=== PATIENT | female | born 1945 | race Caucasian/White ===

== ENCOUNTER → 2016-06-27 | Outpatient (REF) | payer MEDICARE, OTHER ==
[~2016-06-27] MED LIST: ACET65TA OR; AMIT10TA2 OR; ASPI81TA83 OR; ASTELIN; BACTROBAN TOP; CARD90TA OR; CETI10TA OR; DRISDOL PO; FLON0.05; GLUC500T OR; INSULANT SC; LANO0.252 OR; LOPR100T OR; METO10TA2 OR; MULTIVIT PO; NITR0.4S SL; NOVOLOG100 MG/ML SC; PLAV75TA2 OR; PRIL20CA OR; PRIN20TA3 OR; TRAM50TA2 OR; TRILIPIX PO; VITA250T OR; ZOCO80TA OR
[2016-06-27 14:19] LABS: PERCENT SATURATION 20.8 % (13.2-37.4)
== END ==
LOC: M LAB REF 13:21
PROVIDERS: ATTEND Internal Medicine Medical Oncology
DX: D46.9 Myelodysplastic syndrome, unspecified (principal); D64.9 Anemia, unspecified

== ENCOUNTER 2016-07-19 10:01 | Inpatient (IN) | payer MEDICARE, OTHER ==
[~2016-07-19] VITALS: Ht 160 cm; Wt 64.5 kg
[2016-07-19] MEDS: SPIRONOLACTONE 12.5MG PER 1/2 TABLET PO SCH (09:00)
[2016-07-19] MEDS ORDERED: ONDANSETRON 4MG/2ML VIAL (J2405) IV ONE (10:45)
[2016-07-19] MEDS ORDERED: MORPHINE 2 MG/ML 1ML SYRINGE IV PRN (10:45)
[2016-07-19 11:08] LABS: BASO # 0.1 K/mm3 (0.0-0.2); BASO % 0.5 % (0.0-1.0); EOS # 0.1 K/mm3 (0.0-0.50); LARGE UNSTAINED CELL # 0.1 K/mm3 (0.0-0.4); LARGE UNSTAINED CELL % 0.9 % (0.0-4.0); LYMPH # 1.6 K/mm3 (1.5-4.5); LYMPH % 14.3 % (24.0-44.0); MEAN CORPUSCULAR HEMOGLOBIN 29.9 pg (27.0-33.0); MEAN CORPUSCULAR HGB CONC 32.6 g/dl (32.0-36.5); MEAN CORPUSCULAR VOLUME 91.5 fl (80.0-96.0); MONO # 0.5 K/mm3 (0.0-0.8); MONO % 4.7 % (0.0-5.0); NEUTROPHILS # 8.3 K/mm3 (1.8-7.7); NEUTROPHILS % 78.7 % (36.0-66.0); PLATELET COUNT, AUTOMATED 249 k/mm3 (150-450); RED CELL DISTRIBUTION WIDTH 16.9 % (11.5-14.5); WHITE BLOOD COUNT 10.5 K/mm3 (4.0-10.0)
[2016-07-19 11:17] LABS: INR 1.29
[2016-07-19] MEDS ORDERED: ACETAMINOPHEN TAB 650MG DOSE (2X325MG) PO ONE (11:30)
[2016-07-19] MEDS ORDERED: PROT20TA11 (11:31)
[2016-07-19] MEDS ORDERED: ENTR1TAB (11:31)
[2016-07-19] MEDS ORDERED: MAGN400T2 (11:31)
[2016-07-19] MEDS ORDERED: CARV25TA (11:31)
[2016-07-19] MEDS ORDERED: DEMADEX (11:31)
[2016-07-19] MEDS ORDERED: ATOR40TA (11:31)
[2016-07-19] MEDS ORDERED: XARE20TA PO ×2 (11:31→13:50)
[2016-07-19] MEDS ORDERED: ISOS1TAB12 (11:31)
--- NOTE | 2016-07-19 11:32 | REP ---
PORTABLE CHEST: AP portable view of the chest is performed. There is mild cardiomegaly. There is mild vascular congestion. No infiltrates are seen. Left pacemaker is noted. There is calcification of the thoracic aorta. The mediastinal silhouette is otherwise unremarkable. IMPRESSION: Mild cardiomegaly and diffuse vascular congestion. No infiltrate. Signed by Armaan Dewey MD 07/19/2016 05:03 P
[2016-07-19 11:35] LABS: ALBUMIN 3.6 GM/DL (3.2-5.2); ALBUMIN/GLOBULIN RATIO 1.06 (1.00-1.93); BILIRUBIN,DIRECT 0.2 MG/DL (0.0-0.2); BILIRUBIN,TOTAL 0.6 MG/DL (0.2-1.0); CALCIUM LEVEL 9.1 MG/DL (8.8-10.2); CREATININE FOR GFR 1.2 MG/DL (0.55-1.02); GLOMERULAR FILTRATION RATE 47.3 (>39); POTASSIUM SERUM 3.9 MEQ/L (3.5-5.1)
[2016-07-19] MEDS ORDERED: FUROSEMIDE 40 MG/4 ML VIAL (J1940) IV ONE (13:15)
[2016-07-19] MEDS ORDERED: ATOR40TA PO (13:50)
[2016-07-19] MEDS ORDERED: INSUH10VL SC (13:50)
[2016-07-19] MEDS ORDERED: ASPI1TAB PO (13:50)
[2016-07-19] MEDS ORDERED: INSULANT SC (13:50)
[2016-07-19] MEDS ORDERED: PANT20TA PO (13:50)
[2016-07-19] MEDS ORDERED: METF500T PO (13:50)
[2016-07-19] MEDS ORDERED: AMIT100TA PO (13:50)
[2016-07-19] MEDS ORDERED: CARV25TA PO (13:50)
[2016-07-19] MEDS ORDERED: ISOS1TAB12 PO (13:50)
[2016-07-19] MEDS ORDERED: ENTR1TAB PO (13:50)
[2016-07-19] MEDS ORDERED: DRIS50002 PO (13:50)
[2016-07-19] MEDS ORDERED: MAGN400T5 PO (13:50)
[2016-07-19] MEDS ORDERED: TYLE650T35 PO (13:50)
[2016-07-19] MEDS ORDERED: TORS5TAB2 PO (13:50)
[2016-07-19] MEDS ORDERED: DIGO0.12 PO (13:50)
[2016-07-19] MEDS ORDERED: CLOB05OI TOP (13:52)
[2016-07-19] MEDS ORDERED: NITR4TASL SL (13:52)
[2016-07-19] MEDS ORDERED: GLUCOSE 4 GM CHEW TABLET PO PRN (15:00)
[2016-07-19] MEDS ORDERED: DEXTROSE 50% 50 ML SYRINGE IV PRN (15:00)
[2016-07-19] MEDS ORDERED: GLUCAGON FOR INJ 1 MG VIAL (J1610) SC PRN (15:00)
[2016-07-19] MEDS ORDERED: NITROGLYCERIN 0.4 MG SUBL TABLET SL PRN (15:15)
--- NOTE | 2016-07-19 15:36 | HPEPDOC ---
Medical History and Physical Date of Admission 07/19/16 History and Physical ATTENDING: Dr. Stroud PCP: Dr Johnson, [facility]. Legal Compliance Officer: Dr Zheng. CC: Chest Pain. HPI: 70yoF with a past medical history significant for CAD/MS, ischemic cardiomyopathy with AICD, chronic atrial fibrillation, follows with cardiology, Dr Zheng. The patient reports that she was having chest pain yesterday and was advised to report to the emergency department by her glaze handler, Dr. Zheng. She however did not do so. Last evening throughout the night, she continued to have chest pain and states she was using sublingual nitroglycerin. This morning she reported this to her xyginmpz-ne-fog who brought her to the emergency department for evaluation. She states the pain is in her mid chest and radiates around her chest. She describes this as a pressure. She states it occurred on and off throughout the night. She did use sublingual nitroglycerin however she is unsure how many times she used it. She states she did have associated shortness of breath, palpitations, and lightheadedness. She does not report nausea or diaphoresis. She does not report any jaw pain or arm pain. She states she is currently pain-free. Denies any fevers, chills, weakness, fatigue, MCCOY, cough, abdominal pain, N/V/D or changes in bowel or bladder habits. Upon presentation to the hospital the patient was found to have chest pain/ pulmonary edema, thus the hospitalist team was consulted. PMHx: CAD/MS Cardiac stents 6 Chronic atrial fibrillation-on Xarelto IDDM Ischemic cardiomyopathy/AICD 02/04 Hypertension/hypertensive heart disease Hyperlipidemia COPD Restless leg syndrome GERD CKD3 MISTY/noncompliant with CPAP History of chronic anemia/MDS- Poggi in past. (bone marrow bx 02/23) PSHX: Hysterectomy Cholecystectomy EGD 07/06. Laura. Unremarkable Colonoscopy 07/06. Laura. Adenomatous polyp. 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 Well-nourished, well developed. No acute distress. Alert and oriented x 3. Pleasant, interactive. HEENT: Normocephalic, atraumatic. Pupils are equal, round, and reactive to light. Extraocular movements are intact. No nystagmus appreciated. Sclera are nonicteric. Conjunctiva without injection. Nose midline. Nasal turbinates without bogginess. EACs both patent BL. TMs both visualized and harvey with good cone of light, no bulging or erythema. No facial asymmetry. Moist mucous membranes. Dentition fair. Pharynx pink and moist, no cobblestoning. Neck supple , trachea midline. No lymphadenopathy or thyromegaly appreciated. CHEST: irregular irregular rate and rhythm, +S1, +S2. LUNGS: Clear to auscultation bilaterally. No wheezes, rales, or rhonchi. Breathing appears symmetric and easy. Patient is speaking in full sentences. No accessory muscle use. ABD: Round, soft, non-tender, non-distended. +Bowel sounds throughout. No rebound or guarding. No costovertebral angle tenderness. EXT: Pulses 2+ bilaterally dorsalis pedis and radial. No lower extremity edema appreciated. SKIN: [place], dry, warm. Capillary refill <2sec. No rashes. NEURO: Alert and oriented x 3. Cranial nerves III-XII are intact. No focal deficits appreciated. CXR: Mild cardiomegaly and diffuse vascular congestion, no infiltrate. BNP 890. A&P: 70yoF with a past medical history significant for CAD/MS, ischemic cardiomyopathy with AICD, chronic atrial fibrillation, follows with cardiology, Dr Zheng. The patient reports that she was having chest pain yesterday and was advised to report to the emergency department by her glaze handler, Dr. Zheng. She however did not do so. Last evening throughout the night, she continued to have chest pain and states she was using sublingual nitroglycerin. This morning she reported this to her hmbqshkd-wi-och who brought her to the emergency department for evaluation. The patient will be admitted to PCU for at least [address] Stroud's service. Patient is discussed with Dr. Rudolph. Chest pain. CIP/Trop Q8 x [address] Zheng who is aware and will follow Pt. Pulmonary edema. IV Lasix in ED, po Torsemide on Hold. IV Lasix 40mg Q8 for net neg 1-1.5 l per 24 hr. CAD/history of MS/cardiac stents. Coreg with hold parameters, statin, Imdur, sublingual nitroglycerin as needed. Ischemic cardiomyopathy/AICD. Digoxin, digoxin level added to admission labs. Entresto. Chronic atrial fibrillation. Coreg with hold parameters/patient remains on Xarelto. Hypertension/hypertensive heart disease Hyperlipidemia. Continue statin. IDDM. Continue Levemir at reduced dose/sliding scale insulin. Metformin on hold. CKD3. Baseline serum creatinine appears to be 1.1-1.2. GERD. PPI. Hypomagnesemia. Continue supplement. Magnesium level pending. RLS. Patient takes amitriptyline at bedtime. MISTY. Patient is noncompliant with CPAP. Supplemental oxygen as needed. History of chronic anemia related to MDS. Evaluated by Dr. Tolentino in the past. Baseline hemoglobin appears to be 9-10. DVT prophylaxis. Patient remains on Xarelto. The patient states she is DNR, copy of DNR is requested for the chart. I have both independently examined this patient as well as reviewed the dictated note. I have discussed in detail with Jose Miguel Danielle the findings and plan of treatment as documented in the her note. I will continue to follow the patient and offer further guidance to the patients care as necessary during this hospital stay. Vital Signs 97.6 74 138/75 14 96% room air Laboratory Data Labs 24H Laboratory Tests 2 07/19/16 11:00: Aspartate Amino Transf (AST/SGOT) 21, Alanine Aminotransferase (ALT/SGPT) 33, Alkaline Phosphatase 63, Total Bilirubin 0.6, Direct Bilirubin 0.2, Albumin 3.6 , Albumin/Globulin Ratio 1.06, Anion Gap 12, B-Type Natriuretic Peptide 890H, White Blood Count 10.5H, Red Blood Count 3.21L, Hemoglobin 9.6L, Hematocrit 29.4L, Mean Corpuscular Volume 91.5, Mean Corpuscular Hemoglobin 29.9, Mean Corpuscular Hemoglobin Concent 32.6, Red Cell Distribution Width 16.9H, Platelet Count 249, Neutrophils (%) (Auto) 78.7H, Lymphocytes (%) (Auto) 14.3L, Monocytes (%) (Auto) 4.7, Eosinophils (%) (Auto) 1.0, Basophils (%) (Auto) 0.5, Neutrophils # (Auto) 8.3H, Lymphocytes # (Auto) 1.6, Monocytes # (Auto) 0.5, Eosinophils # (Auto) 0.1, Basophils # (Auto) 0.1, Calcium Level 9.1, Creatine Kinase MB 2.4, Creatine Kinase MB Relative Index 4.06H, Glomerular Filtration Rate 47.3, Large Unclassified Cells # 0.1, Large Unclassified Cells % 0.9, Prothromb Time International Ratio 1.29, Prothrombin Time 16.2H, Total Creatine Kinase 59, Total Protein 7.0, Troponin I 0.24H 07/19/16 12:30: Creatine Kinase MB 2.5, Creatine Kinase MB Relative Index 4.03H, Total Creatine Kinase 62, Troponin I 0.29#H CBC/BMP Laboratory Tests 07/19/16 11:00 Red Blood Count 3.21 L, Mean Corpuscular Volume 91.5, Mean Corpuscular Hemoglobin 29.9, Mean Corpuscular Hemoglobin Concent 32.6, Red Cell Distribution Width 16.9 H, Neutrophils (%) (Auto) 78.7 H, Lymphocytes (%) (Auto ) 14.3 L, Monocytes (%) (Auto) 4.7, Eosinophils (%) (Auto) 1.0, Basophils (%) ( Auto) 0.5, Neutrophils # (Auto) 8.3 H, Lymphocytes # (Auto) 1.6, Monocytes # ( Auto) 0.5, Eosinophils # (Auto) 0.1, Basophils # (Auto) 0.1 Home Medications Scheduled Acetaminophen (Tylenol 8 Hour Arthritis) 650 Mg Tab 1,300 MG PO BID Amitriptyline HCl (Amitriptyline HCl) 100 Mg Tab 100 MG PO QHS Aspirin (Aspirin 81) 81 Mg Tab 81 MG PO DAILY Atorvastatin Calcium (Atorvastatin Calcium) 40 Mg Tab 80 MG PO QHS Carvedilol (Carvedilol) 25 Mg Tab 25 MG PO BID Digoxin (Digoxin) 0.125 Mg Tab 0.125 MG PO DAILY Insulin Aspart (Novolog) 100 U/Ml Inj 0 SC AC PER SLIDING SCALE Insulin Glargine (Lantus) 1 Units/0.01 Ml Susp 44 UNITS SC DAILY Isosorbide Mononitrate (Isosorbide Mononitrate) 10 Mg Tab 5 MG PO BID Magnesium Oxide (Magnesium Oxide 400) 400 Mg Tab 400 MG PO QPM DINNERTIME Metformin Hydrochloride (Metformin HCl) 500 Mg Tab 500 MG PO BID Pantoprazole Sodium (Pantoprazole Sodium) 20 Mg Tab 20 MG PO DAILY Rivaroxaban (Xarelto) 20 Mg Tab 20 MG PO QPM DINNERTIME Sacubitril/Valsartan (Entresto 24-26 mg) 1 Tab Tab 1 TAB PO BID Torsemide (Torsemide) 5 Mg Tab 5 MG PO BID Vitamin D (Drisdol) 50,000 Unit Cap 50,000 UNIT PO Q2WK TAKES EVERY OTHER MONDAY Scheduled PRN Clobetasol Propionate (Clobetasol Propionate) 0.05 % Oin 1 DOSE TOP PRN PRN PRN RASH Nitroglycerin (Nitrostat) 0.4 Mg Subl 0.4 MG SL NITRO PRN PRN CHEST PAIN Allergies Coded Allergies: Codeine (Verified Allergy, Intermediate, RASH, 08/21/12) Latex (Verified Allergy, Intermediate, RASH, 08/21/12) Penicillins (Verified Allergy, Intermediate, RASH w/AUGMENTIN, 08/21/12) Penicillins Cross Reactors (Verified Allergy, Intermediate, RASH w/ AUGMENTIN, 08/21/12) Ana Santos Jul 19, 2016 15:36 MARLA RUDOLPH MD Jul 24, 2016 18:46
[2016-07-19 15:38] VITALS: BP 143/64
[2016-07-19 15:41] LABS: DIGOXIN LEVEL 1.7 NG/ML (0.5-2.0); MAGNESIUM LEVEL 1.5 MG/DL (1.8-2.4)
[2016-07-19] MEDS ORDERED: MAGNESIUM OXIDE 400 MG TAB (MAG-OX) PO SCH (18:00)
[2016-07-19] MEDS: HumaLOG INSULIN (NovoLOG) PER UNIT SC SCH ×2 (21:00→22:51)
[2016-07-19] MEDS: MAGNESIUM OXIDE 400 MG TAB (MAG-OX) PO SCH (21:00)
[2016-07-19 21:12] VITALS: BP 155/99
[2016-07-19] MEDS: AMITRIPTYLINE 50 MG TAB PO SCH (22:49)
[2016-07-19] MEDS: ACETAMINOPHEN TAB 650MG DOSE (2X325MG) PO PRN (22:49)
[2016-07-19] MEDS: RIVAROXABAN 20 MG TAB (XARELTO) PO SCH (22:50)
[2016-07-19] MEDS: ISOSORBIDE MONONITRATE 10MG TABLET PO SCH (22:50)
[2016-07-19] MEDS: ENTRESTO 24-26MG TABLET (SACUBITRIL/VALSARTAN) PO SCH (22:50)
[2016-07-19] MEDS: ATORVASTATIN 20 MG TAB PO SCH (22:51)
[2016-07-19] MEDS: CARVedilol 12.5 MG TAB PO SCH (22:52)
[2016-07-19] MEDS: FUROSEMIDE 40 MG/4 ML VIAL (J1940) IV SCH (23:48)
[2016-07-20] VITALS (7 sets, daily range): BP systolic 119–169; BP diastolic 55–75
[2016-07-20] MEDS ORDERED: SLF 3 ML SYR IV PRN (03:30)
[2016-07-20 04:35] LABS: MEAN CORPUSCULAR HEMOGLOBIN 29.8 pg (27.0-33.0); MEAN CORPUSCULAR HGB CONC 33.4 g/dl (32.0-36.5); MEAN CORPUSCULAR VOLUME 89.1 fl (80.0-96.0); RED CELL DISTRIBUTION WIDTH 16.8 % (11.5-14.5); WHITE BLOOD COUNT 8.9 K/mm3 (4.0-10.0)
[2016-07-20 04:55] LABS: ALBUMIN 3.4 GM/DL (3.2-5.2); BILIRUBIN,TOTAL 0.7 MG/DL (0.2-1.0); CALCIUM LEVEL 8.8 MG/DL (8.8-10.2); CREATININE FOR GFR 1.08 MG/DL (0.55-1.02); GLOMERULAR FILTRATION RATE 53.4 (>39); POTASSIUM SERUM 3.3 MEQ/L (3.5-5.1); TOTAL PROTEIN 6.8 GM/DL (6.4-8.2)
[2016-07-20] MEDS: SLF 3 ML SYR IV SCH ×3 (05:04→20:25)
[2016-07-20] MEDS ORDERED: POTASSIUM CHLORIDE 10 MEQ SR TABLET PO ONE ×2 (07:30→19:15)
[2016-07-20] MEDS: HumaLOG INSULIN (NovoLOG) PER UNIT SC SCH ×4 (08:50→20:21)
[2016-07-20] MEDS: SPIRONOLACTONE 12.5MG PER 1/2 TABLET PO SCH (08:51)
[2016-07-20] MEDS: LEVEMIR (INSULIN DETEMIR) 1 UNITS/0.01ML SC SCH (08:51)
[2016-07-20] MEDS: FUROSEMIDE 40 MG/4 ML VIAL (J1940) IV SCH (08:51)
[2016-07-20] MEDS: MAGNESIUM OXIDE 400 MG TAB (MAG-OX) PO SCH ×2 (08:52→20:24)
[2016-07-20] MEDS: ISOSORBIDE MONONITRATE 10MG TABLET PO SCH ×2 (08:52→20:23)
[2016-07-20] MEDS: CARVedilol 12.5 MG TAB PO SCH ×2 (08:52→20:22)
[2016-07-20] MEDS: ASPIRIN 81 MG ENTERIC TAB PO SCH (08:53)
[2016-07-20] MEDS: ENTRESTO 24-26MG TABLET (SACUBITRIL/VALSARTAN) PO SCH ×2 (08:53→20:24)
[2016-07-20] MEDS ORDERED: LEVEMIR (INSULIN DETEMIR) 1 UNITS/0.01ML SC SCH (09:00)
[2016-07-20] MEDS ORDERED: PANTOPRAZOLE 20 MG TAB PO SCH (09:00)
[2016-07-20] MEDS ORDERED: DIGOXIN 0.125 MG TAB PO SCH (09:00)
[2016-07-20 09:24] LABS: MAGNESIUM LEVEL 1.5 MG/DL (1.8-2.4)
--- NOTE | 2016-07-20 10:25 | ECGEPIP ---
Stationary ECG Study [facility] - ED Test Date: 2016-07-19 Pat Name: ARYAN RAMOS Department: Room: - Gender: F Information And Data Architect Analyst: lizette : 1945 Requested By: Sapna Woods Order Number: [id number] Reading MD: Reyes Tse Measurements Intervals [place] Rate: 88 P: [place]: 0 QRS: 2 QRSD: 109 T: 147 QT: 344 QTc: 416 Interpretive Statements ATRIAL FIBRILLATION WITH OCCASIONAL PACEMAKER LEFT VENTRICULAR HYPERTROPHY WITH STRAIN PATTERN NO PRIORS Electronically Signed On 07-20-2016 10:24:59 EST by Reyes Tse
--- NOTE | 2016-07-20 10:30 | ECGEPIP ---
Stationary ECG Study [facility] - ED Test Date: 2016-07-19 Pat Name: ARYAN RAMOS Department: Room: - Gender: F Code Enforcement Supervisor: lizette : 1945 Requested By: Sapna Woods Order Number: [id number] Reading MD: Reyes Tse Measurements Intervals [place] Rate: 76 P: [place]: 0 QRS: -1 QRSD: 111 T: 152 QT: 360 QTc: 405 Interpretive Statements ELECTRONIC VENTRICULAR PACEMAKER WITH ATRIAL FIBRILLATION LEFT VENTRICULAR HYPERTROPHY WITH STRAIN PATTERN SIMILAR TO 07/19/16 1015h Electronically Signed On 07-20-2016 10:29:51 EST by Reyes Tse
--- NOTE | 2016-07-20 10:32 | ECGEPIP ---
Stationary ECG Study [facility] - ED Test Date: 2016-07-19 Pat Name: ARYAN RAMOS Department: Room: [place] [address] Gender: F Auricular Therapist: julia : 1945 Requested By: Sapna Woods Order Number: [id number] Reading MD: Reyes Tse Measurements Intervals [place] Rate: 77 P: [place]: 0 QRS: -4 QRSD: 121 T: 148 QT: 370 QTc: 421 Interpretive Statements ELECTRONIC VENTRICULAR PACEMAKER WITH ATRIAL FIBRILLATION LEFT VENTRICULAR HYPERTROPHY WITH STRAIN PATTERN SIMILAR TO 07/19/16 1209h Electronically Signed On 07-20-2016 10:32:19 EST by Reyes Tse
[2016-07-20] MEDS: MAG SULF 1GM/100ML (MAG RUN) 1 GM in APPROPRIATE DILUENT 1 EA IV SCH ×4 (12:12→20:21)
--- NOTE | 2016-07-20 14:18 | IPNPDOC ---
Text Note Date of Service The patient was seen on 07/20/16. NOTE Subjective: Patient is a 70 year old female with a PMHx of CAD (Hx of SD) - s/p Stent x6, Ischemic cardiomyopathy - s/p AICD, Chronic A. fib (on Xarelto), IDDM2 , HTN, DLP, COPD, RLS, GERD, CKD3, MISTY (not on CPAP), History of Anemia / MDS who presented to the ER with complaints of chest pain and shortness of breath. She reported taking nitroglycerin with some relief. She was brought in for evaluation and was admitted for CHF exacerbation. Patient was seen and examined at the bedside. Patient denies any problems. Objective: Vitals (See below) General: Lying in bed, no acute distress, comfortable, AAOx3 HEENT: NC, AT CVS: Irregularly irregular, +S1S2 Lungs: Fair air entry b/l, -w/r/r Abdomen: Soft, ND, NT, +BSx4 Extremities: +PPx4, - Edema, - Calf tenderness Assessment and plan: 1. Chest pain - possibly 2/2 NSTEMI, possibly 2/2 demand ischemia from CHF exacerbation - chest pain currently resolved - EKG without acute changes - Troponin remained stable - c/w Isosorbide mononitrate and nitroglycerin PRN - Cardiology consulted 2. Dyspnea - possibly 2/2 Decompensated sytolic and diastolic CHF - likely 2/2 non-compliance with meds - Presented with shortness of breath - Physical currently un-revealing for fluid overload - CXR reveals some early vascular congestion - s/p Lasix IV - Takes Entresto as an outpatient - Will c/w Carvedilol, Spironolactone 3. CAD s/p stents, Hx of SD - c/w ASA and Atorvastatin 4. Chronic atrial fibrillation - Digoxin level elevated; currently on hold - c/w rate control with carvedilol - c/w anticoagulation with Xarelto 5. HTN - Bp well controlled 6. DLP - c/w atorvastatin 7. IDDM2 - c/w ISS and Levemir 8. CKD3 - Cr at baseline 9. RLS - c/w amitriptyline 10. MISTY - not compliant with CPAP 11. Chronic anemia / MDS - Hg stable 12. GERD - c/w PPI 13. DVT prophylaxis - c/w full anticoagulation with Xarelto Code Status: - DNR / DNI VS,Fishbone, I+O VS, Fishbone, I+O Laboratory Tests 07/20/16 04:03 Calcium Level 8.8, Aspartate Amino Transf (AST/SGOT) 20, Alanine Aminotransferase (ALT/SGPT) 26, Total Creatine Kinase 93, Alkaline Phosphatase 53, Total Bilirubin 0.7, Total Protein 6.8, Albumin 3.4 07/20/16 04:04 Red Blood Count 3.22 L, Mean Corpuscular Volume 89.1, Mean Corpuscular Hemoglobin 29.8, Mean Corpuscular Hemoglobin Concent 33.4, Red Cell Distribution Width 16.8 H Vital Signs Date Time Temp Pulse Resp B/P Pulse Ox O2 Delivery O2 Flow Rate FiO2 07/20/16 11:55 98.0 70 22 119/55 97 Room Air FAWN NGUYEN MD Jul 20, 2016 14:17
[2016-07-20] MEDS: RIVAROXABAN 20 MG TAB (XARELTO) PO SCH (17:24)
[2016-07-20] MEDS: FAMOTIDINE 20 MG TAB PO SCH (17:27)
--- NOTE | 2016-07-20 19:36 | CR ---
CARDIOLOGY CONSULTATION DATE OF CONSULTATION: 07/19/2016 REFERRING PHYSICIAN: Dr. Anival Hurley INDICATION: Chest pain. Decompensated CHF. HISTORY: This 70-year-old mother of three grown children, disabled/retired resident of [place], [place] remarkably lives alone in her own home despite a host of medical problems including dementia. She has been quite cantankerous and admits to noncompliance with dietary measures and her medications. Has a very complicated history of ischemic, hypertensive, and mitral valvular heart disease complicated by abnormal EKG, chronic atrial fibrillation, and congestive heart failure (systolic and diastolic dysfunction), post biventricular implantable cardioverter defibrillator implant January 2016. Was also known to have chronic renal insufficiency, mild dysplastic syndrome with anemia requiring transfusion, and pulmonary problems and obstructive sleep apnea followed by pulmonary medicine. She was only just seen in my office for followup July 07, 2016, and claimed to be doing fairly well. Walks only short distances with canes stopping with dyspnea and fatigue. At that time, effort dyspnea apparently had not changed though she had gained nine pounds from prior visit March 2016. Denies orthopnea or nocturnal dyspnea. Had been free of any palpitations or ICD discharge. Her weight was 151 pounds, pulse rate was 72 beats per minute and regular with EKG showing underlying atrial fibrillation and consistent ventricular pacing and blood pressure 120/64. Neck veins were reported to be only 4 cm above sternal angle. There was good air entry over both lung [place] with no adventitious sounds and there was no reported edema. Apparently over the course of the past 24 hours, has had prolonged chest pain. Unfortunately because of her dementia, she does not recall the details of this distress. According to her daughter, she had refused to seek medical attention, but was willing to come to our office. She had been directed to come to the emergency room, but had refused yesterday. Admits to have taken a host of sublingual nitroglycerin tablets without relief and finally agreed to come to the emergency room following the pleading of her family and the persistence of her distress. Serial EKGs here showed mostly spontaneous QRS complexes unlike our office EKG believed to be a reflection of noncompliance with her beta rock. There were no obvious serial repolarization changes and serial Troponin I levels were all in an indeterminate range from 0.24-0.32. CPK values were all normal with initially marginal relative index that is not likely reliable at that low level. She was given IV morphine, Tylenol and Zofran in the emergency room with relief of her distress slightly. She was admitted to hospital because of her prolonged chest discomfort of unknown etiology and radiographic evidence of pulmonary congestion. (As mentioned above, does not follow dietary restrictions and is often noncompliant with her medical therapy.) With her chest discomfort, she claims to have had shortness of breath, but not worse than usual she claims. Has been unaware of her heart action. No ICD discharge. No symptom or sign to suggest embolic phenomenon. No leg pain or swelling. KNOWN PAST CARDIAC DISEASE/EVENTS/TESTS: June 2007, non-Q-wave myocardial infarction with cardiac catheterization showing LVEF of 50%, 80% mid and then occluded LAD with 80% proximal RCA stenosis. Underwent successful LAD and RCA stenting. December 2007, followup cardiac catheterization for her recurrent chest pain showed LVEF 50%, occluded mid LAD, but widely patent RCA stent. January 15, 2008, underwent CABG times one using minimally invasive BYNUM to LAD. June 2010, underwent followup cardiac catheterization showing two-vessel coronary disease with patent BYNUM to LAD, but high-grade ostial first diagonal branch stenosis and distal RCA stenosis. Both of these were successfully stented. October 2010, repeat cardiac catheterization showing again two-vessel coronary disease with patent BYNUM to LAD, patent proximal RCA and distal RCA stents and a 75% restenosis of the diagonal and 75% mid RCA stenosis. These were both stented. February 2011, dual-chamber pacemaker implantation for tachy-jamie syndrome. Paroxysmal atrial fibrillation. Subsequently this became chronic atrial fibrillation. January 2013. Continued chest pain with abnormal stress study/ cardiac catheterization showing LVEF 55% with patent BYNUM to LAD, patent RCA and diagonal vessel stents. Unable to explain her discomfort on the basis of coronary disease recommended continued medical therapy. March 2015 Echocardiogram showed mild left ventricle hypertrophy with moderately dilated left atrium with elevated mean left atrial pressure. Right heart chamber sizes had been normal with only mild pulmonary hypertension. Normal IVC size against a significantly elevated central venous pressure. Moderate mitral annular calcification with moderate to moderately severe insufficiency and moderate aortic valvular sclerosis with only trace insufficiency. December 2015. Recurrent prolonged chest pain with non-Q-wave LA/ catheterization showing severe left ventricular dysfunction, LVEF 30% with patent BYNUM to LAD as well as RCA and diagonal stents. No significant change from January 2013. December 23, 2015, Last echocardiogram, [facility] was reportedly technically difficult, but showed a dilated left ventricle, global impairment of LV systolic function, LVEF of 27%. January 28, 2016, In light of LV dysfuction her pacemaker was upgraded to a biventricular cardioverter defibrillator ([employer] - Quadra Rossyura, model number [id number] Q- FURNITURE UPHOLSTERY MECHANIC (Dr. Riddhi Patiño, mechanical technician, [facility]). CORONARY RISK FACTORS: Advanced age. Postmenopausal status. Obesity. Longstanding insulin-dependent diabetes mellitus, chronic hypertension, chronic hypercholesterolemia, had never smoked but was exposed to secondhand smoke as a child. No symptomatic cardiovascular disease or family history of premature coronary heart disease. OTHER PAST MEDICAL/SURGICAL HISTORY: Three normal vaginal deliveries. Tonsillectomy age 11. Cholecystectomy 1969. Tubal ligation 1972 with total abdominal hysterectomy 1973. Prior colonoscopy. Carotid ultrasound October 14, 2014, showed 55% bilateral internal carotid artery stenoses. Brain CT scan October 14, 2014, showed cerebral atrophy and chronic microvascular ischemic changes with extensive atherosclerotic arterial calcifications. Nocturnal oximetry and prior sleep studies April 05 and June 2015, confirmed obstructive sleep apnea, but the patient admits to noncompliance with CPAP therapy. Chronic renal insufficiency (stage III). Degenerative joint disease. Fibromyalgia. Restless leg syndrome. Anemia of chronic disease, believed to be mild dysplastic syndrome follows with Dr. Miranda, hematology. REVIEW OF SYSTEMS: Weight gain as mentioned above. Has been free of any fever, chills or night sweats. Wears corrective lenses. Reduced auditory acuity but does not wear a hearing aid. History of asthmatic bronchitis. Currently denies cough, hemoptysis or prior pneumonia. Intermittent dysphagia and heartburn on proton pump inhibitor therapy. Denies recent abdominal pain, change in bowel habit or GI bleeding. Urinary incontinence with chronic renal insufficiency as mentioned. Denies dysuria or hematuria. History of myalgia and arthralgia. Was also a problem with her balance and has fallen on multiple occasions and despite this has been adamant to live by herself. Fortunately has not fractured any bones. History of anxiety and depression. Intermittent lightheadedness, headache. Digital paresthesia related to her diabetes. History of easy bruising with her oral anticoagulant therapy. Environmental allergies. Seasonal allergies. All other systems review is negative. MEDICATIONS: At home she is supposed to be taking carvedilol 25 mg twice a day, digoxin 0.125 mg daily, Entresto 24-26 one tablet twice a day, torsemide 5 mg twice a day, atorvastatin 80 mg at bedtime, Nitrostat 0.4 mg SL every five minutes as needed, Xarelto 50 mg daily, isosorbide mononitrate 5 mg twice a day, aspirin 81 mg daily, magnesium 400 mg by mouth daily, Protonix 20 mg daily, metformin to 500 mg twice a day, Lantus insulin as directed. NovoLog FlexPen sliding scale as directed. Amitriptyline 100 mg at bedtime, and Tylenol 500 mg tablets two tablets at bedtime. ALLERGIES: Reported includes CODEINE, AUGMENTIN, TAPE, DETERGENTS, and HYDROCODONE with uncertain reactions. According to the electronic medical record has a DO NOT RESUSCITATE which is not presently available on the chart. PHYSICAL EXAMINATION: CONSTITUTIONAL: Somewhat cantankerous elderly lady of medium body build, not currently appearing in any distress. Lying comfortably with the head of bed elevated 30 degrees. Slight pallor. VITAL SIGNS: Heart rate 90 bpm and irregularly irregular, blood pressure 150/60 both arms supine and sitting with legs dependent, respiratory rate 18 per minute , O2 saturation 96% on room air. She is afebrile. Weight 142 pounds (curiously almost 10 pounds less than she was in my office July 07, 2016??). Height 63 inches, body surface area 1.7 m2 and BMI 25.2. EYES: Slightly pale but no icterus or petechiae. No xanthelasma of her lids. ENT/Mouth: Upper and lower dentures. Normal oral moisture. No central cyanosis. NECK: Trachea midline. Thyroid not enlarged. Jugular veins appeared to be at approximately 4 cm above the sternal angle. RESPIRATORY: Normal-appearing chest configuration and chest expansion with well-healed sternotomy incision and ICD incision left subclavian region. Good air entry over both lung [place] with no more than subtle bibasilar inspiratory crepitations. Slight prolongation of expiration but no audible wheeze. CARDIOVASCULAR: Apical impulse at the anterior axillary line fifth intercostal space with palpable apical thrill. Variable S1-S2 related to her arrhythmia. Audible S3 gallop with obvious grade 3-4 out of 6 apical systolic murmur that does not vary with her regular pulse. Separate systolic ejection murmur along left sternal border radiating to the right base that does vary with her irregular pulse in keeping with LV outflow tract origin. No diastolic murmur. Normal carotid upstrokes but variable volume related to her arrhythmia. No bruits. Abdominal aorta was not palpable. No bruits. Femoral pulses were symmetrical and normal. Pedal pulses were slightly reduced to symmetrically. Currently has no dependent pedal edema. No obvious varicose veins. EXTREMITIES: No clubbing, peripheral cyanosis or splinter hemorrhages. GI: Soft, nontender abdomen with no splenomegaly. Liver span measuring 8 cm in the right midclavicular line. Rectal examination not indicated. MUSCULOSKELETAL: No obvious joint deformities. Fair muscular strength for age, able to sit up by herself. Normal muscle tone. Normal spine curvature. Ambulation was not tested at this time. SKIN: Slight pallor but no icterus or skin lesions. NEURAL/PSYCH: Currently orientated to place and person. I, facial, extremity movements were symmetrical and normal. No abnormal movements. Quite cantankerous. INVESTIGATIONS: Portable chest x-ray performed this morning in the emergency room was reviewed independently. This showed obvious cardiomegaly even allowing for this portable technique. Thoracic aorta was not unfolded. Biventricular ICD pulse generator left subclavian region with pacing/shocking lead terminating in the right ventricular apex, separate atrial pacing lead in the high right atrial chamber and a left ventricular stimulating lead in a posterolateral branch of the great cardiac vein. Obvious pulmonary venous congestion and interstitial edema but no pleural effusion. This x-ray clearly shows decompensation from the last available x-ray we have of February 2011. EKGs: Serial studies were performed from 10:15 a.m. to 12:36 p.m. showing underlying atrial fibrillation with controlled ventricular response ranging from 77 to 88 bpm. Mostly spontaneous QRS complexes with occasional appropriately paced QRS complex. Fairly obvious left ventricle hypertrophy with prominent voltages and strain pattern as well as incomplete left bundle branch block configuration. No Q-waves to suggest prior infarctions. LABORATORY DATA: Hemoglobin 9.6 with normal MCV and MCHC. White blood cell count was slightly elevated at 10.5. Normal platelet count. PT/INR was slightly elevated at 16.2 with INR 1.3. Electrolytes were normal with BUN 25, creatinine 1.2 (these are minimally improved from March 2016 with BUN at that time of 35 , creatinine 1.4). Serum magnesium level was soft at 1.5, albumin was normal at 3.5, random glucose was elevated at 357, glomerular filtration rate was 47. Liver function studies were normal. Ultra sensitive TSH was normal. BNP level was elevated at 890 with no prior value available. 890 elevated from valued March 2016 when it was 342. Last lipid profile was August 2015, that showed a total cholesterol 122, HDL 38, LDL 39, total to HDL ratio 3.2, triglycerides 196. IMPRESSION/PLAN: 1. Chest pain (precordial): From her description, which unfortunately is without detail other than sustained duration from yesterday, I believe we can safely rule out myocardial ischemia as its origin with the absence of serial EKG repolarization change and flat troponin I values. The discomfort has resolved with nonspecific therapy including morphine and Tylenol. She has a history of GI disturbance and is on proton pump inhibitor. She is certainly at risk of triggering an acute coronary syndrome by her medication noncompliance which we have reviewed with the patient and her daughter. 2. Heart failure (systolic and diastolic/acute on chronic: Again, from her history she is noncompliant with medical therapy and admits to noncompliance with dietary measures as well. Has radiographic and chemical evidence of decompensation. She has been placed at least temporarily while she is here on a modest salt and fluid intake restriction. Her torsemide has been placed on hold and she has been started on furosemide 40 mg IV every eight hours for the time being. Has a biventricular ICD in situ, but interestingly off her carvedilol, her QRS complex spontaneously is narrower than her ventricular paced complexes. She will be restarted on her isosorbide mononitrate and Entresto therapies. I have tried to explain to her the importance of a modest salt and fluid intake restriction, but related to her dementia, she does not appear to be capable of understanding this. It is unlikely she would benefit from cardiac rehabilitation education. 3. Atrial fibrillation (chronic)/biventricular implantable cardioverter defibrillator in situ: Has had device implant because of primary prevention of sudden with her advanced left ventricular dysfunction. Curiously she has a DNR. As mentioned, her spontaneous QRS complexes are narrower than complexes with her biventricular stimulation. She remains on combination carvedilol and Xarelto. Her digoxin therapy was discontinued though digoxin level was only 1.7. We will continue to monitor her ventricular rates off this agent here in hospital. I am uncertain why this was discontinued as no ventricular ectopic activity has been visualized on the monitor to my understanding. Has not suffered an ICD discharge. 4. Coronary artery disease ([place] vessel)/post non-Q-wave myocardial infarctions/post CABG times one/post multiple stenting procedures of her LAD and RCA: Has had recurrent chest discomfort with a non-Q-wave infarction of late yet cardiac catheterizations 2012 as well as December 2015 have failed to demonstrate any change and no intervention had been performed. As mentioned above, her current chest pain is not believed to be ischemic in light of these prolonged duration and negative serial Troponin I levels. For the time being, remains on protective combination carvedilol, Entresto, isosorbide mononitrate, atorvastatin, and low-dose aspirin. 5. Hypertensive heart disease (benign with heart failure): As mentioned above, some signs of decompensation likely related to her noncompliance. Current systolic blood pressure is suboptimally controlled in light of this phenomenon as well. Current renal function is stable or improved from last March. I am confident that her blood pressure will be controlled with resuming her medications regularly and her present parenteral furosemide therapy. 6. Mitral valve disorder (non-rheumatic)/insufficiency: Has two systolic murmurs, one believed to be related to her moderately severe to severe mitral insufficiency and the other LV outflow tract related to her aortic valvular sclerosis. Fortunately, no symptoms or signs of endocarditis. Lema management would be optimal blood pressure control. She would not be a very good candidate for invasive intervention of her mitral valve, especially with her mental status , but she does not want any invasive intervention and is currently a DNR. I will plan on following her briefly with you here in hospital. I anticipate we will be able to deem her compensated relatively quickly, but I am frustrated by the fact that with her dementia and her living alone that she is likely to be readmitted in the near future with recurrent decompensation. Her family appear to be ineffective in persuading her to take her medications regularly or comply with her modest salt and fluid intake restriction. I am not convinced her home environment is safe in light of her report of repeated falls and tripping over items. I believe social service will be hopeful here. DARIANA
--- NOTE | 2016-07-20 19:40 | IPN ---
DATE: 07/20/2016 CARDIOLOGY PROGRESS NOTE SUBJECTIVE: The patient claims to feel quite comfortable today. No recurrent chest discomfort now that she is back on her customary medical therapy. Denies any shortness of breath or lightheadedness. OBJECTIVE: Slightly confused elderly lady of medium body build, lying fairly comfortably flat. Was in no distress. Heart rate currently 60 beats per minute and regular. Blood pressure 114/54 supine, 108/48 sitting with legs dependent. Respiratory rate 18 per minute, oxygen saturation 96% on room air. Afebrile. No weight was recorded today, but she has had a negative fluid balance. Slight pallor but no cyanosis. Normal oral moisture. Trachea midline. Neck veins were not elevated. No dependent edema. Good air entry over both lung [place] with no current inspiratory rales. Soft abdomen. MANIFOLD BUILDER: With reintroduction of her customary carvedilol, her ventricular response to her atrial fibrillation has been controlled. LABORATORY DATA: Hemoglobin today is stable at 9.6. Normal white blood cell count and platelet count. Chemistry today showed a slight degree of hypokalemia, as well as hypomagnesemia. BUN essentially stable. Creatinine actually somewhat improved with rastafari of her medications. IMPRESSION/PLAN: 1. Chest pain (precordial): I remain uncertain as to the origin of this complaint, but suspect it was gastrointestinal (GI) in origin, GI in nature, in light of her negative several troponin I levels. Fortunately, she is now restarted on her customary medications with good effect. 2. Hypokalemia/hypomagnesemia: Likely related to multiple factors including suboptimal control of her diabetes mellitus at home. Fasting blood sugar today was significantly improved. Diuretic therapy is also contributing. We have ordered parenteral magnesium replacement and she has been started on spironolactone and potassium. In light of the absence of signs of congestion, her parenteral diuretic therapy has been discontinued. Following correction of her electrolytes, we hope to resume her low-dose torsemide tomorrow. 3. Heart failure (systolic and diastolic/acute on chronic): A followup PA and lateral chest x-ray will be obtained in the morning. Her digoxin has been on hold in light of her electrolyte disturbances but will continue on her present combination carvedilol, isosorbide mononitrate, Entresto and spironolactone. 4. Atrial fibrillation (chronic)/biventricular implantable cardioverter defibrillator in situ: With her beta rock, her ventricular response to her atrial fibrillation is now controlled, such that she is using her device more regularly. Remains on Xarelto anticoagulation without manifest bleeding. 5. Coronary artery disease ([place] vessel)/post non-Q myocardial infarction, old/post remote coronary artery bypass graft (CABG)/post remote percutaneous transluminal coronary angioplasty (PTCA): As mentioned, we do not believe her admission chest pain was ischemic in nature in light of its prolonged nature and negative troponin I levels. This was likely GI and currently is receiving Pepcid in place of her proton pump inhibitor because of her hypomagnesemia. Remains on protective beta rock losartan combination, atorvastatin, and low-dose aspirin. We would encourage her gradual ambulation prior to tentative discharge home. 6. Hypertensive heart disease (benign with heart failure): Compensated as mentioned above. Current blood pressure would be considered adequately controlled. 7. Mitral valve disorder (nonrheumatic)/insufficiency: Auscultatory findings were unchanged from yesterday, remains of any symptoms or sign of endocarditis. As mentioned, I am not convinced that this person is safe to go home. Has been living by herself, has been quite cantankerous, not following dietary restrictions or being compliant with her medical therapy. If her living arrangements are not changed, I am convinced that she will simply return to the emergency room with further decompensation. I have encouraged social service to be involved, along with physical therapy, but there is no doubt in my mind that an assisted living facility would be optimal.
[2016-07-20] MEDS: AMITRIPTYLINE 50 MG TAB PO SCH (20:23)
[2016-07-20] MEDS: ATORVASTATIN 20 MG TAB PO SCH (20:24)
[2016-07-21 03:55] VITALS: BP 146/82
[2016-07-21 05:59] LABS: MEAN CORPUSCULAR HEMOGLOBIN 29.4 pg (27.0-33.0); MEAN CORPUSCULAR HGB CONC 32.8 g/dl (32.0-36.5); MEAN CORPUSCULAR VOLUME 89.6 fl (80.0-96.0); RED CELL DISTRIBUTION WIDTH 16.5 % (11.5-14.5); WHITE BLOOD COUNT 10.2 K/mm3 (4.0-10.0)
[2016-07-21 06:12] LABS: ALBUMIN 3.4 GM/DL (3.2-5.2); ALBUMIN/GLOBULIN RATIO 0.97 (1.00-1.93); BILIRUBIN,TOTAL 0.7 MG/DL (0.2-1.0); CALCIUM LEVEL 8.7 MG/DL (8.8-10.2); CREATININE FOR GFR 1.24 MG/DL (0.55-1.02); GLOMERULAR FILTRATION RATE 45.5 (>39); MAGNESIUM LEVEL 2.7 MG/DL (1.8-2.4); POTASSIUM SERUM 4.3 MEQ/L (3.5-5.1); TOTAL PROTEIN 6.9 GM/DL (6.4-8.2)
[2016-07-21] MEDS: SLF 3 ML SYR IV SCH ×3 (06:39→20:51)
[2016-07-21 08:00] VITALS: BP 119/68
[2016-07-21] MEDS: HumaLOG INSULIN (NovoLOG) PER UNIT SC SCH ×4 (08:11→20:51)
[2016-07-21] MEDS: LEVEMIR (INSULIN DETEMIR) 1 UNITS/0.01ML SC SCH ×2 (08:12→20:50)
[2016-07-21] MEDS: FAMOTIDINE 20 MG TAB PO SCH (08:12)
[2016-07-21] MEDS: MAGNESIUM OXIDE 400 MG TAB (MAG-OX) PO SCH ×2 (08:12→21:00)
[2016-07-21] MEDS: SPIRONOLACTONE 12.5MG PER 1/2 TABLET PO SCH (08:12)
[2016-07-21] MEDS: ASPIRIN 81 MG ENTERIC TAB PO SCH (08:12)
[2016-07-21] MEDS: ENTRESTO 24-26MG TABLET (SACUBITRIL/VALSARTAN) PO SCH ×2 (08:13→20:49)
[2016-07-21] MEDS: CARVedilol 12.5 MG TAB PO SCH ×2 (08:14→20:45)
[2016-07-21] MEDS: ISOSORBIDE MONONITRATE 10MG TABLET PO SCH ×2 (08:14→20:45)
[2016-07-21] MEDS: ACETAMINOPHEN TAB 650MG DOSE (2X325MG) PO PRN ×2 (09:05→21:03)
--- NOTE | 2016-07-21 11:28 | REP ---
CHEST X-RAY: Two views. HISTORY: Follow up CHF. Comparison chest x-ray July 19, 2016. FINDINGS: A multilead pacemaker remains in the right heart via the left side. There is left coronary artery stent material overlying the heart anteriorly. The heart is mildly enlarged unchanged. EKG electrodes are seen. The lungs are symmetrically aerated and clear. The pleural angles are sharp. Pulmonary vasculature is not increased. There are clips in right upper quadrant of the abdomen consistent with previous cholecystectomy. IMPRESSION: Cardiomegaly with pacemaker. Otherwise no acute disease. Pulmonary vascular congestion noted on July 19, 2016 is resolved. Signed by Diogenes Buchanan MD 07/21/2016 01:31 P
[2016-07-21 12:00] VITALS: BP 137/72
--- NOTE | 2016-07-21 13:00 | ECGEPIP ---
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
--- NOTE | 2016-07-21 13:12 | IPNPDOC ---
Text Note Date of Service The patient was seen on 07/21/16. NOTE Subjective: Patient is a 70 year old female with a PMHx of CAD (Hx of [place]) - s/p Stent x6, Ischemic cardiomyopathy - s/p AICD, Chronic A. fib (on Xarelto), IDDM2 , HTN, DLP, COPD, RLS, GERD, CKD3, MISTY (not on CPAP), History of Anemia / MDS who presented to the ER with complaints of chest pain and shortness of breath. She reported taking nitroglycerin with some relief. She was brought in for evaluation and was admitted for CHF exacerbation. Patient was seen and examined at the bedside. Patient denies any problems. Objective: Vitals (See below) General: Lying in bed, no acute distress, comfortable, AAOx3 HEENT: NC, AT CVS: Irregularly irregular, +S1S2 Lungs: Fair air entry b/l, -w/r/r Abdomen: Soft, ND, NT, +BSx4 Extremities: +PPx4, - Edema, - Calf tenderness Assessment and plan: 1. Chest pain - possible non-cardiac etiology, less likely 2/2 NSTEMI, possibly 2/2 demand ischemia from CHF exacerbation - chest pain currently resolved - EKG without acute changes - Troponin remained stable without any significant elevation - c/w Isosorbide mononitrate and nitroglycerin PRN - Cardiology following 2. Dyspnea - possibly 2/2 Decompensated systolic and diastolic CHF - likely 2/2 non-compliance with medications - Presented with shortness of breath - Physical currently un-revealing for fluid overload - CXR reveals some early vascular congestion - s/p Lasix IV - Has been negative 1.4 liters - Takes Entresto as an outpatient - Will c/w Carvedilol, Spironolactone 3. CAD s/p stents, Hx of [place] - c/w ASA and Atorvastatin 4. Chronic atrial fibrillation - Digoxin level elevated; currently on hold - c/w rate control with carvedilol - c/w anticoagulation with Xarelto 5. HTN - BP well controlled 6. DLP - c/w atorvastatin 7. IDDM2 - c/w ISS and Levemir 8. CKD3 - Cr at baseline 9. RLS - c/w amitriptyline 10. MISTY - not compliant with CPAP 11. Chronic anemia / MDS - Hg stable 12. GERD - c/w PPI 13. DVT prophylaxis - c/w full anticoagulation with Xarelto Code Status: - Full code Disposition: - Awaiting for placement option / assisted living possibility - Patient is functional but is unable to remember to take medications VS,Fishbone, I+O VS, Fishbone, I+O Laboratory Tests 07/21/16 05:18 Calcium Level 8.7 L, Aspartate Amino Transf (AST/SGOT) 12 L, Alanine Aminotransferase (ALT/SGPT) 23, Alkaline Phosphatase 58, Total Bilirubin 0.7, Total Protein 6.9, Albumin 3.4, Red Blood Count 3.35 L, Mean Corpuscular Volume 89.6, Mean Corpuscular Hemoglobin 29.4, Mean Corpuscular Hemoglobin Concent 32.8 , Red Cell Distribution Width 16.5 H Vital Signs Date Time Temp Pulse Resp B/P Pulse Ox O2 Delivery O2 Flow Rate FiO2 07/21/16 12:00 97.1 70 22 137/72 97 Room Air I&O- Last 24 Hours up to 6 AM 07/21/16 06:00 Intake Total 1610 ml Output Total 2600 ml Balance -990 ml FAWN NGUYEN MD Jul 21, 2016 13:12
[2016-07-21] MEDS: DIGOXIN 0.125 MG TAB PO SCH (14:16)
[2016-07-21 16:00] VITALS: BP 130/76
[2016-07-21] MEDS: RIVAROXABAN 20 MG TAB (XARELTO) PO SCH (17:07)
--- NOTE | 2016-07-21 18:58 | IPN ---
DATE: 07/21/2016 CARDIOLOGY PROGRESS NOTE SUBJECTIVE: At this point, has been up ambulating with assistance and has done quite well. Remains free of any cardiovascular complaint at this time. Is anxious to go home and apparently passed her home safety evaluation. I have discussed quite frankly my concerns with the patient and her daughter. OBJECTIVE: Slightly confused elderly lady of medium body build, currently sitting comfortably in a bedside chair. Heart rate 70 beats per minute and regular, blood pressure 140/76 sitting, respiratory rate 18 per minute O2 saturation 95% on room air. Afebrile. Her weight today is down to 63 kg from 64.4 kg. Normal oral moisture. No central cyanosis. Trachea midline. Neck veins were not visible above the sternal clavicle with her sitting. Has good air entry over both lung [place] with no current adventitious sounds. Still has some slight plus/minus pitting of her distal lower legs. 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 PA AND LEFT LATERAL CHEST X-RAY: Study performed earlier today shows clear improvement of her pulmonary congestion compared with her admission study of July 19, 2016. LABORATORY DATA: Hemoglobin stable at 9.8. White blood cell count 10.2. Normal platelet count. Her electrolytes today are normal with potassium up from 3.3 to 4.3, and magnesium level measured soon after magnesium infusion was 2.7 up from 1.5. BUN and creatinine basically stable at 28 and 1.2. Albumin 3.4. Had followup cardiac enzymes earlier today because of recurrent bout of chest discomfort, and her Troponin I level was negative. IMPRESSION/PLAN 1. Chest pain (precordial): Frustratingly had a recurrent episode of distress, again with negative troponin I level at this point. Has been started on Pepcid. We will obtain followup electrocardiogram (EKG) and troponin I level tomorrow morning, but I am not convinced this is cardiac in origin. 2. Hypokalemia/hypomagnesemia: These problems are corrected at this point. We should be able to resume her customary torsemide diuretic therapy tomorrow. 3. Heart failure (systolic and diastolic/acute on chronic): At this point I believe she is compensated. Chest x-ray shows clearing of her interstitial edema. Her digoxin therapy will also be resumed. As discussed with the patient and her daughter, if the patient is compliant with her medical therapy and dietary restrictions, we are cautiously optimistic she will be able to continue with outpatient care alone. 4. Atrial fibrillation (chronic)/biventricular implantable cardioverter defibrillator in situ: As mentioned before, with a beta rock therapy has been paced as we would wish. Digoxin has been introduced in light of her heart failure and her atrial fibrillation to further aid control of spontaneous QRS complexes. Continues on Xarelto without adverse effect. 5. Coronary artery disease ([place] vessel)/post non-Q-wave myocardial infarction ([place])/post remote infarction/ post remote coronary artery bypass graft (CABG)/post remote percutaneous transluminal coronary angioplasty (PTCA ): Additional episode of discomfort earlier today but has been able to ambulate without problems subsequently to this. Negative troponin I level earlier today. No change has been made to her protective beta-rock, losartan, atorvastatin and low-dose aspirin. Tentative discharge planning for tomorrow. 6. Hypertensive heart disease (benign with heart failure): Compensated as mentioned with adequate blood pressure control on her combination medical therapy. 7. Mitral valve disorder (nonrheumatic)/insufficiency: Auscultatory findings were unchanged. Remains free of symptom or sign of endocarditis. At this point, the patient claims to be more willing to have home supervision 12/12 and is promising to be more compliant with both dietary and medication therapies. Family is still interested in pursuing assisted living facility. I believe this would be the safest for her in the long run. We will plan on seeing her in followup approximately one week following her discharge home.
[2016-07-21 20:00] VITALS: BP 158/93
[2016-07-21] MEDS: AMITRIPTYLINE 50 MG TAB PO SCH (20:45)
[2016-07-21] MEDS: ATORVASTATIN 20 MG TAB PO SCH (20:45)
[2016-07-21 23:59] VITALS: BP 146/72
[2016-07-22 05:38] LABS: MEAN CORPUSCULAR HEMOGLOBIN 29.9 pg (27.0-33.0); MEAN CORPUSCULAR HGB CONC 32.7 g/dl (32.0-36.5); MEAN CORPUSCULAR VOLUME 91.4 fl (80.0-96.0); RED CELL DISTRIBUTION WIDTH 16.6 % (11.5-14.5); WHITE BLOOD COUNT 10.4 K/mm3 (4.0-10.0)
[2016-07-22 05:49] LABS: ALBUMIN 3.5 GM/DL (3.2-5.2); ALBUMIN/GLOBULIN RATIO 1.03 (1.00-1.93); BILIRUBIN,TOTAL 0.5 MG/DL (0.2-1.0); CALCIUM LEVEL 8.6 MG/DL (8.8-10.2); CREATININE FOR GFR 1.3 MG/DL (0.55-1.02); GLOMERULAR FILTRATION RATE 43.1 (>39); MAGNESIUM LEVEL 2.4 MG/DL (1.8-2.4); POTASSIUM SERUM 4.4 MEQ/L (3.5-5.1); TOTAL PROTEIN 6.9 GM/DL (6.4-8.2)
[2016-07-22] MEDS: SLF 3 ML SYR IV SCH ×3 (06:00→20:46)
[2016-07-22 07:10] VITALS: BP 144/71
[2016-07-22] MEDS: ISOSORBIDE MONONITRATE 10MG TABLET PO SCH (08:48)
[2016-07-22] MEDS: TORSEMIDE 10 MG TABLET PO SCH (08:49)
[2016-07-22] MEDS: SPIRONOLACTONE 12.5MG PER 1/2 TABLET PO SCH (08:49)
[2016-07-22] MEDS: HumaLOG INSULIN (NovoLOG) PER UNIT SC SCH ×4 (08:49→20:46)
[2016-07-22] MEDS: CARVedilol 12.5 MG TAB PO SCH ×2 (08:50→20:41)
[2016-07-22] MEDS: MAGNESIUM OXIDE 400 MG TAB (MAG-OX) PO SCH (08:50)
[2016-07-22] MEDS: DIGOXIN 0.125 MG TAB PO SCH (08:50)
[2016-07-22] MEDS: ASPIRIN 81 MG ENTERIC TAB PO SCH (08:50)
[2016-07-22] MEDS: FAMOTIDINE 20 MG TAB PO SCH (08:50)
[2016-07-22] MEDS: ENTRESTO 24-26MG TABLET (SACUBITRIL/VALSARTAN) PO SCH ×2 (08:51→20:47)
[2016-07-22] MEDS: ACETAMINOPHEN TAB 650MG DOSE (2X325MG) PO PRN ×2 (09:01→20:39)
--- NOTE | 2016-07-22 10:47 | IPNPDOC ---
Text Note Date of Service The patient was seen on 07/22/16. NOTE Subjective: Patient is a 70 year old female with a PMHx of CAD (Hx of [place]) - s/p Stent x6, Ischemic cardiomyopathy - s/p AICD, Chronic A. fib (on Xarelto), IDDM2 , HTN, DLP, COPD, RLS, GERD, CKD3, MISTY (not on CPAP), History of Anemia / MDS who presented to the ER with complaints of chest pain and shortness of breath. She reported taking nitroglycerin with some relief. She was brought in for evaluation and was admitted for CHF exacerbation. Patient was seen and examined at the bedside. Patient denies any problems. Objective: Vitals (See below) General: Lying in bed, no acute distress, comfortable, AAOx3 HEENT: NC, AT CVS: Irregularly irregular, +S1S2 Lungs: Fair air entry b/l, -w/r/r Abdomen: Soft, ND, NT, +BSx4 Extremities: +PPx4, - Edema, - Calf tenderness Assessment and plan: 1. s/p Chest pain - possible non-cardiac etiology, less likely 2/2 NSTEMI, possibly 2/2 demand ischemia from CHF exacerbation - chest pain currently resolved - EKG without acute changes - Troponin remained stable without any significant elevation - c/w Isosorbide mononitrate and nitroglycerin PRN - c/w Famotidine - Cardiology following 2. Dyspnea - possibly 2/2 Decompensated systolic and diastolic CHF - likely 2/2 non-compliance with medications - Presented with shortness of breath - Physical currently un-revealing for fluid overload - CXR reveals some early vascular congestion - s/p Lasix IV - Has been negative 2.3 liters - Will c/w Entresto, Carvedilol, Spironolactone 3. CAD s/p stents, Hx of [place] - c/w ASA and Atorvastatin 4. Chronic atrial fibrillation - Digoxin level elevated; currently on hold - c/w rate control with carvedilol - c/w anticoagulation with Xarelto 5. HTN - BP well controlled 6. DLP - c/w atorvastatin 7. IDDM2 - c/w ISS and Levemir 8. CKD3 - Cr at baseline 9. RLS - c/w amitriptyline 10. MISTY - not compliant with CPAP 11. Chronic anemia / MDS - Hg stable 12. GERD - c/w PPI 13. DVT prophylaxis - c/w full anticoagulation with Xarelto Code Status: - Full code Disposition: - Patient's daughter will be in tomorrow; will discuss long term care pharmacist placement options VS,Fishbone, I+O VS, Fishbone, I+O Laboratory Tests 07/22/16 05:15 Calcium Level 8.6 L, Aspartate Amino Transf (AST/SGOT) 9 L, Alanine Aminotransferase (ALT/SGPT) 21, Alkaline Phosphatase 60, Total Bilirubin 0.5, Total Protein 6.9, Albumin 3.5, Red Blood Count 3.11 L, Mean Corpuscular Volume 91.4, Mean Corpuscular Hemoglobin 29.9, Mean Corpuscular Hemoglobin Concent 32.7 , Red Cell Distribution Width 16.6 H Vital Signs Date Time Temp Pulse Resp B/P Pulse Ox O2 Delivery O2 Flow Rate FiO2 07/22/16 08:50 78 07/22/16 08:50 144/71 07/22/16 07:10 98.0 18 97 Room Air I&O- Last 24 Hours up to 6 AM 07/22/16 06:00 Intake Total 660 ml Output Total 1425 ml Balance -765 ml FAWN NGUYEN MD Jul 22, 2016 10:47
--- NOTE | 2016-07-22 13:07 | ECGEPIP ---
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
[2016-07-22 13:39] VITALS: BP 136/67
[2016-07-22] MEDS: RIVAROXABAN 20 MG TAB (XARELTO) PO SCH (18:59)
--- NOTE | 2016-07-22 19:47 | IPN ---
DATE: 07/22/2016 CARDIOLOGY PROGRESS NOTE SUBJECTIVE: Has been up in the room to the bathroom with her walker without problem with shortness of breath or chest discomfort. Has also been free of any faintness or dizziness. Remains free of palpitations. OBJECTIVE: Slightly confused, pleasant elderly lady of medium body build lying comfortably. Heart rate 70 beats per minute and regular, blood pressure 140/80 with lying, unchanged upon sitting. Respiratory rate 18 per minute, O2 saturation 96% on room air. Afebrile. Her weight is recorded as being higher today than yesterday despite a negative fluid balance of 1100 mL yesterday? Slight pallor but no cyanosis. Normal oral moisture. Neck veins were approximately 3 cm above sternal angle. Has good air entry over both lung [place] with subtle inspiratory rales right base that persist after coughing. Has only plus/minus sacral and no lower extremity pitting at this time. LABORATORY DATA: Hemoglobin slightly down to 9.3 today. White blood cell count stable at 10.4. Normal platelet count. Her electrolytes were normal. BUN slightly up from yesterday at 36, creatinine slightly up at 1.3. Fasting glucose this morning 232 not controlled. Magnesium level 2.4, albumin 3.5. Followup Troponin I level was normal at 0.06. IMPRESSION/PLAN: 1. Chest pain (precordial): Denies having any further distress today. Has been up in the room and has done well. EKG earlier today shows underlying atrial fibrillation with mostly spontaneous QRS complexes with rate averaging 80 beats per minute (BPM). Occasional appropriate ventricular paced beat. Observed repolarization abnormalities with her [place]z [place] complexes did not appear dramatically changed from previous days. In light of her current blood pressure and slightly worsening renal function, we have elected to increase her carvedilol dosage and discontinue her digoxin. We have encouraged continued gradual ambulation. 2. Heart failure (systolic and diastolic dysfunction/chronic): Pleased to be compensated at this time despite her ongoing systolic hypertension. As mentioned above, in light of her slightly worsening renal function we have elected to discontinue her digoxin and increase carvedilol. Her dosage of isosorbide mononitrate will also be increased. No change has been made to her torsemide which was resumed earlier today. Also remains on spironolactone and Entresto. With her current magnesium level, we have discontinued her magnesium oxide. 3. Atrial fibrillation (chronic)/biventricular implantable cardioverter defibrillator in situ: As mentioned, is not using her biventricular device pacing system as she should, so I have elected to increase her beta rock therapy as mentioned. Digoxin has been discontinued in the hope of avoiding digoxin toxicity with her renal insufficiency. Continues on Xarelto without adverse effect though her hemoglobin today is slightly lower. 4. Coronary disease ([place] vessel)/post non-Q-wave myocardial infarction ([place])/post remote [place]/post coronary artery bypass graft (CABG)/post percutaneous transluminal coronary angioplasty (PTCA): No further chest discomfort despite her ongoing systolic hypertension as mentioned. Troponin I earlier today was negative and her EKG shows no significant change from prior studies. I am confident that she will tolerate the increased beta rock with her other protective therapies. 5. Hypertensive heart disease (benign with heart failure): As per assessment number two above. 6. Mitral valve disorder (nonrheumatic)/insufficiency: Auscultatory findings remain unchanged. No symptoms or signs of endocarditis. I understand that social service has arranged for a meeting with the family to arrange a safe discharge planning. I certainly have concerns with her returning to the same environment that led to her current admission - noncompliance with dietary measures and medications and reported falling. At this point, we will follow her further in-hospital but would be pleased to reassess her at any time. We will plan on seeing her for a followup appointment in our office in approximately one week's time.
[2016-07-22] MEDS: ATORVASTATIN 20 MG TAB PO SCH (20:39)
[2016-07-22] MEDS: ISOSORBIDE MON. (ISMO,MONOKET) 20 MG TAB PO SCH (20:40)
[2016-07-22] MEDS: AMITRIPTYLINE 50 MG TAB PO SCH (20:41)
[2016-07-22] MEDS: LEVEMIR (INSULIN DETEMIR) 1 UNITS/0.01ML SC SCH (20:45)
[2016-07-22 22:00] VITALS: BP 127/60
[2016-07-23] MEDS: SLF 3 ML SYR IV SCH ×3 (05:39→20:43)
[2016-07-23 06:00] VITALS: BP_SYST 114; BP_SYST 143; BP_DIAS 68; BP_DIAS 72
[2016-07-23 06:11] LABS: MEAN CORPUSCULAR HGB CONC 32.7 g/dl (32.0-36.5); MEAN CORPUSCULAR VOLUME 91.9 fl (80.0-96.0); RED CELL DISTRIBUTION WIDTH 16.6 % (11.5-14.5); WHITE BLOOD COUNT 9.2 K/mm3 (4.0-10.0)
[2016-07-23 06:34] LABS: ALBUMIN 3.4 GM/DL (3.2-5.2); ALBUMIN/GLOBULIN RATIO 0.94 (1.00-1.93); BILIRUBIN,TOTAL 0.4 MG/DL (0.2-1.0); CALCIUM LEVEL 9.2 MG/DL (8.8-10.2); CREATININE FOR GFR 1.22 MG/DL (0.55-1.02); GLOMERULAR FILTRATION RATE 46.4 (>39); MAGNESIUM LEVEL 2.1 MG/DL (1.8-2.4); POTASSIUM SERUM 4.3 MEQ/L (3.5-5.1)
[2016-07-23] MEDS: HumaLOG INSULIN (NovoLOG) PER UNIT SC SCH ×4 (08:37→20:42)
[2016-07-23] MEDS: TORSEMIDE 10 MG TABLET PO SCH (08:38)
[2016-07-23] MEDS: ISOSORBIDE MON. (ISMO,MONOKET) 20 MG TAB PO SCH ×2 (08:39→17:16)
[2016-07-23] MEDS: SPIRONOLACTONE 12.5MG PER 1/2 TABLET PO SCH (08:39)
[2016-07-23] MEDS: ENTRESTO 24-26MG TABLET (SACUBITRIL/VALSARTAN) PO SCH ×2 (08:39→20:42)
[2016-07-23] MEDS: CARVedilol 12.5 MG TAB PO SCH ×2 (08:39→20:42)
[2016-07-23] MEDS: ASPIRIN 81 MG ENTERIC TAB PO SCH (08:39)
[2016-07-23] MEDS: FAMOTIDINE 20 MG TAB PO SCH (08:39)
--- NOTE | 2016-07-23 12:03 | IPNPDOC ---
Text Note Date of Service The patient was seen on 07/23/16. NOTE Subjective: Patient is a 70 year old female with a PMHx of CAD (Hx of [place]) - s/p Stent x6, Ischemic cardiomyopathy - s/p AICD, Chronic A. fib (on Xarelto), IDDM2 , HTN, DLP, COPD, RLS, GERD, CKD3, MISTY (not on CPAP), History of Anemia / MDS who presented to the ER with complaints of chest pain and shortness of breath. She reported taking nitroglycerin with some relief. She was brought in for evaluation and was admitted for CHF exacerbation. Patient was seen and examined at the bedside. Patient denies any problems. Objective: Vitals (See below) General: Lying in bed, no acute distress, comfortable, AAOx3 HEENT: NC, AT CVS: Irregularly irregular, +S1S2 Lungs: Fair air entry b/l, -w/r/r Abdomen: Soft, ND, NT, +BSx4 Extremities: +PPx4, - Edema, - Calf tenderness Assessment and plan: 1. s/p Chest pain - possible non-cardiac etiology (GI), less likely 2/2 NSTEMI, possibly 2/2 demand ischemia from CHF exacerbation - chest pain currently resolved - EKG without acute changes - Troponin remained stable without any significant elevation - c/w Isosorbide mononitrate and nitroglycerin PRN - c/w Famotidine - Cardiology following 2. Dyspnea - possibly 2/2 Decompensated systolic and diastolic CHF - likely 2/2 non-compliance with medications - Presented with shortness of breath - Physical currently un-revealing for fluid overload - CXR reveals some early vascular congestion - s/p Lasix IV - Has been negative 3.0 liters - Will c/w Entresto, Carvedilol, Spironolactone 3. CAD s/p stents, Hx of [place] - c/w ASA and Atorvastatin 4. Chronic atrial fibrillation - Digoxin level elevated; currently on hold - c/w rate control with carvedilol - c/w anticoagulation with Xarelto 5. HTN - BP well controlled 6. DLP - c/w atorvastatin 7. IDDM2 - c/w ISS and Levemir 8. CKD3 - Cr at baseline 9. RLS - c/w amitriptyline 10. MISTY - not compliant with CPAP 11. Chronic anemia / MDS - Hg stable 12. GERD - c/w PPI 13. DVT prophylaxis - c/w full anticoagulation with Xarelto Code Status: - Full code Disposition: - Patient's daughter will be in today - will discuss options for placement VS,Fishbone, I+O VS, Fishbone, I+O Laboratory Tests 07/23/16 05:42 Calcium Level 9.2, Aspartate Amino Transf (AST/SGOT) 8 L, Alanine Aminotransferase (ALT/SGPT) 18, Alkaline Phosphatase 62, Total Bilirubin 0.4, Total Protein 7.0, Albumin 3.4, Red Blood Count 3.31 L, Mean Corpuscular Volume 91.9, Mean Corpuscular Hemoglobin 30.0, Mean Corpuscular Hemoglobin Concent 32.7 , Red Cell Distribution Width 16.6 H Vital Signs Date Time Temp Pulse Resp B/P Pulse Ox O2 Delivery O2 Flow Rate FiO2 07/23/16 08:39 72 148/63 07/23/16 06:00 96.7 18 98 Room Air I&O- Last 24 Hours up to 6 AM 07/23/16 06:00 Intake Total 1190 ml Output Total 2150 ml Balance -960 ml FAWN NGUYEN MD Jul 23, 2016 12:03
[2016-07-23 14:00] VITALS: BP 113/58
[2016-07-23] MEDS: RIVAROXABAN 20 MG TAB (XARELTO) PO SCH (17:15)
[2016-07-23] MEDS: LEVEMIR (INSULIN DETEMIR) 1 UNITS/0.01ML SC SCH (20:41)
[2016-07-23] MEDS: ACETAMINOPHEN TAB 650MG DOSE (2X325MG) PO PRN (20:41)
[2016-07-23] MEDS: ATORVASTATIN 20 MG TAB PO SCH (20:42)
[2016-07-23] MEDS: AMITRIPTYLINE 50 MG TAB PO SCH (20:42)
[2016-07-23 22:00] VITALS: BP 128/68
[2016-07-24] MEDS: SLF 3 ML SYR IV SCH ×3 (05:11→21:28)
[2016-07-24 06:00] VITALS: BP 132/64
[2016-07-24 06:08] LABS: MEAN CORPUSCULAR HEMOGLOBIN 29.5 pg (27.0-33.0); MEAN CORPUSCULAR HGB CONC 32.6 g/dl (32.0-36.5); MEAN CORPUSCULAR VOLUME 90.6 fl (80.0-96.0); RED CELL DISTRIBUTION WIDTH 16.5 % (11.5-14.5); WHITE BLOOD COUNT 9.2 K/mm3 (4.0-10.0)
[2016-07-24 06:23] LABS: ALBUMIN 3.4 GM/DL (3.2-5.2); ALBUMIN/GLOBULIN RATIO 0.94 (1.00-1.93); BILIRUBIN,TOTAL 0.4 MG/DL (0.2-1.0); CALCIUM LEVEL 8.6 MG/DL (8.8-10.2); CREATININE FOR GFR 1.21 MG/DL (0.55-1.02); GLOMERULAR FILTRATION RATE 46.8 (>39); POTASSIUM SERUM 4.3 MEQ/L (3.5-5.1)
[2016-07-24] MEDS: TORSEMIDE 10 MG TABLET PO SCH (08:15)
[2016-07-24] MEDS: ISOSORBIDE MON. (ISMO,MONOKET) 20 MG TAB PO SCH ×2 (08:15→16:10)
[2016-07-24] MEDS: SPIRONOLACTONE 12.5MG PER 1/2 TABLET PO SCH (08:15)
[2016-07-24] MEDS: CARVedilol 12.5 MG TAB PO SCH ×2 (08:15→21:26)
[2016-07-24] MEDS: HumaLOG INSULIN (NovoLOG) PER UNIT SC SCH ×4 (08:16→21:27)
[2016-07-24] MEDS: ASPIRIN 81 MG ENTERIC TAB PO SCH (08:16)
[2016-07-24] MEDS: FAMOTIDINE 20 MG TAB PO SCH (08:16)
[2016-07-24] MEDS: ENTRESTO 24-26MG TABLET (SACUBITRIL/VALSARTAN) PO SCH ×2 (08:16→21:27)
--- NOTE | 2016-07-24 09:50 | IPNPDOC ---
Text Note Date of Service The patient was seen on 07/24/16. NOTE Subjective: Patient is a 70 year old female with a PMHx of CAD (Hx of [place]) - s/p Stent x6, Ischemic cardiomyopathy - s/p AICD, Chronic A. fib (on Xarelto), IDDM2 , HTN, DLP, COPD, RLS, GERD, CKD3, MISTY (not on CPAP), History of Anemia / MDS who presented to the ER with complaints of chest pain and shortness of breath. She reported taking nitroglycerin with some relief. She was brought in for evaluation and was admitted for CHF exacerbation. Patient was seen and examined at the bedside. No new problems. Objective: Vitals (See below) General: Lying in bed, no acute distress, comfortable, AAOx3 HEENT: NC, AT CVS: Irregularly irregular, +S1S2 Lungs: Fair air entry b/l, -w/r/r Abdomen: Soft, ND, NT, +BSx4 Extremities: +PPx4, - Edema, - Calf tenderness Assessment and plan: 1. s/p Chest pain - possible non-cardiac etiology (GI), less likely 2/2 NSTEMI, possibly 2/2 demand ischemia from CHF exacerbation - chest pain currently resolved - EKG without acute changes - Troponin remained stable without any significant elevation - c/w Isosorbide mononitrate and nitroglycerin PRN - c/w Famotidine - Cardiology following 2. s/p Dyspnea - possibly 2/2 Decompensated systolic and diastolic CHF - likely 2/2 non-compliance with medications - Presented with shortness of breath - Physical currently un-revealing for fluid overload - CXR 07/19: reveals some early vascular congestion - s/p Lasix IV - Has been negative 4.5 liters - Will c/w Entresto, Carvedilol, Spironolactone, Torsemide 3. CAD s/p stents, Hx of [place] - c/w ASA and Atorvastatin 4. Chronic atrial fibrillation - Digoxin level elevated; currently on hold - c/w rate control with carvedilol - c/w anticoagulation with Xarelto 5. HTN - BP well controlled 6. DLP - c/w atorvastatin 7. IDDM2 - c/w ISS and Levemir 8. CKD3 - Cr at baseline 9. RLS - c/w amitriptyline 10. MISTY - not compliant with CPAP 11. Chronic anemia / MDS - Hg stable 12. GERD - c/w PPI 13. DVT prophylaxis - c/w full anticoagulation with Xarelto Code Status: - Full code Disposition: - Discussed placement options with Daughter and family yesterday - Family is agreeable to assisted living placement to ensure patient takes medications - Will get PFS / CM to establish on Monday VS,Fishbone, I+O VS, Fishbone, I+O Laboratory Tests 07/24/16 05:30 Calcium Level 8.6 L, Aspartate Amino Transf (AST/SGOT) 8 L, Alanine Aminotransferase (ALT/SGPT) 17, Alkaline Phosphatase 59, Total Bilirubin 0.4, Total Protein 7.0, Albumin 3.4, Red Blood Count 3.32 L, Mean Corpuscular Volume 90.6, Mean Corpuscular Hemoglobin 29.5, Mean Corpuscular Hemoglobin Concent 32.6 , Red Cell Distribution Width 16.5 H Vital Signs Date Time Temp Pulse Resp B/P Pulse Ox O2 Delivery O2 Flow Rate FiO2 07/24/16 06:00 96.9 70 18 132/64 98 Room Air I&O- Last 24 Hours up to 6 AM 07/24/16 06:00 Intake Total 990 ml Output Total 2850 ml Balance -1860 ml FAWN NGUYEN MD Jul 24, 2016 09:49
[2016-07-24 14:00] VITALS: BP_SYST 105; BP_SYST 120; BP_DIAS 65; BP_DIAS 70
[2016-07-24] MEDS: RIVAROXABAN 20 MG TAB (XARELTO) PO SCH (17:20)
[2016-07-24] MEDS: ATORVASTATIN 20 MG TAB PO SCH (21:25)
[2016-07-24] MEDS: AMITRIPTYLINE 50 MG TAB PO SCH (21:26)
[2016-07-24] MEDS: LEVEMIR (INSULIN DETEMIR) 1 UNITS/0.01ML SC SCH (21:28)
[2016-07-24] MEDS: ACETAMINOPHEN TAB 650MG DOSE (2X325MG) PO PRN (21:33)
[2016-07-24 22:00] VITALS: BP 117/60
[2016-07-25] MEDS: SLF 3 ML SYR IV SCH ×2 (05:10→13:02)
[2016-07-25 06:00] VITALS: BP 143/72
[2016-07-25] MEDS: ACETAMINOPHEN TAB 650MG DOSE (2X325MG) PO PRN (06:28)
[2016-07-25 06:33] LABS: MEAN CORPUSCULAR HEMOGLOBIN 30.5 pg (27.0-33.0); MEAN CORPUSCULAR HGB CONC 33.2 g/dl (32.0-36.5); MEAN CORPUSCULAR VOLUME 91.8 fl (80.0-96.0); RED CELL DISTRIBUTION WIDTH 16.1 % (11.5-14.5); WHITE BLOOD COUNT 9.4 K/mm3 (4.0-10.0)
[2016-07-25 06:56] LABS: ALBUMIN 3.5 GM/DL (3.2-5.2); ALBUMIN/GLOBULIN RATIO 0.9 (1.00-1.93); BILIRUBIN,TOTAL 0.5 MG/DL (0.2-1.0); CALCIUM LEVEL 9.2 MG/DL (8.8-10.2); CREATININE FOR GFR 1.27 MG/DL (0.55-1.02); GLOMERULAR FILTRATION RATE 44.3 (>39); POTASSIUM SERUM 4.1 MEQ/L (3.5-5.1); TOTAL PROTEIN 7.4 GM/DL (6.4-8.2)
[2016-07-25] MEDS: SPIRONOLACTONE 12.5MG PER 1/2 TABLET PO SCH (09:06)
[2016-07-25] MEDS: HumaLOG INSULIN (NovoLOG) PER UNIT SC SCH ×5 (09:07→21:00)
[2016-07-25] MEDS: CARVedilol 12.5 MG TAB PO SCH ×2 (09:08→21:18)
[2016-07-25] MEDS: ISOSORBIDE MON. (ISMO,MONOKET) 20 MG TAB PO SCH ×2 (09:08→16:41)
[2016-07-25] MEDS: TORSEMIDE 10 MG TABLET PO SCH (09:08)
[2016-07-25] MEDS: ENTRESTO 24-26MG TABLET (SACUBITRIL/VALSARTAN) PO SCH ×2 (09:08→21:17)
[2016-07-25] MEDS: ASPIRIN 81 MG ENTERIC TAB PO SCH (09:08)
[2016-07-25] MEDS: FAMOTIDINE 20 MG TAB PO SCH (09:08)
[2016-07-25] MEDS ORDERED: TORS10TA3 PO (10:28)
[2016-07-25] MEDS ORDERED: ISOS20TA PO (10:28)
[2016-07-25] MEDS ORDERED: FAMO20TA PO (10:28)
[2016-07-25] MEDS ORDERED: CARV12.5 PO (10:28)
[2016-07-25] MEDS ORDERED: SPIR25TA2 PO (10:28)
--- NOTE | 2016-07-25 11:32 | DSES ---
DATE OF ADMISSION: 07/19/2016 DATE OF DISCHARGE: 07/25/2016 ATTENDING PHYSICIAN: Mikki Stroud MD PRIMARY CARE PROVIDER: Kathi Johnson NP REFERRING PHYSICIAN: None. CONSULTING PHYSICIAN: Farzad Zheng MD CONDITION ON DISCHARGE: Stable. FINAL DIAGNOSES: 1. Chest pain, possibly secondary to noncardiac etiology, likely secondary to gastrointestinal (GI). 2. Dyspnea, possibly secondary to decompensated systolic and diastolic congestive heart failure (CHF). PROCEDURES: None. HISTORY OF PRESENT ILLNESS: Patient is a 70-year-old female with a past medical history of coronary artery disease, history of myocardial infarction (MA) status post stent placement times six, ischemic cardiomyopathy status post automatic implantable cardioverter defibrillator (AICD), chronic atrial fibrillation on Xarelto, insulin-dependent diabetes mellitus type 2, hypertension, dyslipidemia, chronic obstructive pulmonary disease (COPD), as well as restless leg syndrome, gastroesophageal reflux disease (GERD), chronic kidney disease (CKD) stage III, obstructive sleep apnea, not on continuous positive airway pressure (CPAP), history of anemia/myelodysplastic syndrome, who presented to the emergency room with complaints of chest pain and shortness of breath. She reported taking nitroglycerin with some relief but was brought in for evaluation and admitted for congestive heart failure (CHF) exacerbation. Patient has been noted to have been not compliant with her medications because her [id number] had been on vacation. ASSESSMENT AND PLAN: 1. Status post chest pain, possibly noncardiac etiology secondary to gastrointestinal (GI), less likely secondary to non-ST elevation myocardial infarction (NSTEMI), and possibly secondary to demand ischemia from congestive heart failure (CHF) exacerbation. Chest pain currently resolved. EKG without any acute changes. Troponin remained stable without any significant elevation. Continue with isosorbide mononitrate and nitroglycerin as needed. Continue with famotidine. Cardiology has been following. 2. Status post dyspnea possibly secondary to decompensated systolic and diastolic congestive heart failure (CHF), likely secondary to noncompliance with medication. Presented with shortness of breath. Physical currently is unrevealing for fluid overload. Chest xray on 07/19/2016, revealed some early vascular congestion. She is status post Lasix intravenous (IV) and has been in negative fluid balance. Continue with Entresto, carvedilol, spironolactone, and torsemide. 3. Coronary artery disease status post stents and history of myocardial infarction (MA). Continue with aspirin and atorvastatin. 4. Chronic atrial fibrillation. Digoxin level was elevated, currently on hold. Continue with rate controlled carvedilol. Continue with anticoagulation Xarelto. 5. Hypertension. Blood pressure remains well controlled. 6. Dyslipidemia. Continue with atorvastatin. 7. Insulin-dependent diabetes mellitus type 2. Continue with insulin sliding scale and Levemir. 8. Chronic kidney disease (CKD) stage III. Creatinine is at baseline. 9. Restless leg syndrome. Continue with amitriptyline. 10. Obstructive sleep apnea. Not been compliant with continuous positive airway pressure (CPAP). 11. Chronic anemia/myelodysplastic syndrome. Hemoglobin remains stable. 12. Gastroesophageal reflux disease (GERD). Continue with proton pump inhibitor (PPI). 13. Deep venous thrombosis (DVT) prophylaxis. Is on full anticoagulation with Xarelto. DISCHARGE MEDICATIONS: Patient has been discharged home with the following medication list: - acetaminophen 1300 mg by mouth twice a day - amitriptyline 100 mg by mouth nightly - aspirin 81 mg by mouth daily - atorvastatin 80 mg by mouth nightly - clobetasol one dose topical as needed for rash - insulin aspart on sliding scale - insulin glargine 44 units subcutaneous daily - magnesium oxide 400 mg by mouth every evening - metformin 500 mg by mouth twice a day - nitroglycerin 0.4 mg sublingual as needed for chest pain - Protonix 20 mg by mouth daily - rivaroxaban 20 mg by mouth every evening - Entresto one tablet by mouth twice a day - vitamin D 50,000 units by mouth weekly Medications stopped include: carvedilol, isosorbide mononitrate, and torsemide New medications prescribed include: - carvedilol 37.5 mg by mouth twice a day - famotidine 20 mg by mouth twice a day - isosorbide mononitrate 20 mg by mouth twice a day - spironolactone 12.5 mg by mouth daily - torsemide 10 mg by mouth daily DISCHARGE INSTRUCTIONS: Patient has been advised to followup with her primary care provider and cardiology within the next 7 days. She has been advised to remain compliant with treatment plan and medications and to return to the emergency room if she experiences any problems. TIME SPENT ON DISCHARGE: 35 minutes.
[2016-07-25 14:00] VITALS: BP 116/57
[2016-07-25] MEDS: RIVAROXABAN 20 MG TAB (XARELTO) PO SCH ×2 (17:45→18:52)
[2016-07-25] MEDS: AMITRIPTYLINE 50 MG TAB PO SCH (21:17)
[2016-07-25] MEDS: ATORVASTATIN 20 MG TAB PO SCH (21:18)
[2016-07-25] MEDS: LEVEMIR (INSULIN DETEMIR) 1 UNITS/0.01ML SC SCH (21:18)
[2016-07-25 22:00] VITALS: BP 117/60
[2016-07-26 06:00] VITALS: BP 126/58
[2016-07-26 06:55] LABS: MEAN CORPUSCULAR HEMOGLOBIN 30.6 pg (27.0-33.0); MEAN CORPUSCULAR VOLUME 92.7 fl (80.0-96.0); RED CELL DISTRIBUTION WIDTH 16.3 % (11.5-14.5); WHITE BLOOD COUNT 10.3 K/mm3 (4.0-10.0)
[2016-07-26 07:24] LABS: ALBUMIN 3.6 GM/DL (3.2-5.2); BILIRUBIN,TOTAL 0.3 MG/DL (0.2-1.0); CALCIUM LEVEL 8.9 MG/DL (8.8-10.2); CREATININE FOR GFR 1.37 MG/DL (0.55-1.02); GLOMERULAR FILTRATION RATE 40.6 (>39); POTASSIUM SERUM 4.4 MEQ/L (3.5-5.1); TOTAL PROTEIN 7.2 GM/DL (6.4-8.2)
[2016-07-26] MEDS: TORSEMIDE 10 MG TABLET PO SCH (07:58)
[2016-07-26] MEDS: HumaLOG INSULIN (NovoLOG) PER UNIT SC SCH ×4 (07:58→22:07)
[2016-07-26] MEDS: SPIRONOLACTONE 12.5MG PER 1/2 TABLET PO SCH (07:58)
[2016-07-26] MEDS: ISOSORBIDE MON. (ISMO,MONOKET) 20 MG TAB PO SCH ×2 (07:58→16:00)
[2016-07-26] MEDS: FAMOTIDINE 20 MG TAB PO SCH (07:59)
[2016-07-26] MEDS: ASPIRIN 81 MG ENTERIC TAB PO SCH (07:59)
[2016-07-26] MEDS: CARVedilol 12.5 MG TAB PO SCH ×2 (07:59→22:06)
[2016-07-26] MEDS: ENTRESTO 24-26MG TABLET (SACUBITRIL/VALSARTAN) PO SCH ×2 (07:59→22:06)
[2016-07-26 14:00] VITALS: BP 125/63
[2016-07-26] MEDS: RIVAROXABAN 20 MG TAB (XARELTO) PO SCH (17:28)
[2016-07-26 22:00] VITALS: BP 136/95
[2016-07-26] MEDS: ATORVASTATIN 20 MG TAB PO SCH (22:05)
[2016-07-26] MEDS: AMITRIPTYLINE 50 MG TAB PO SCH (22:06)
[2016-07-26] MEDS: LEVEMIR (INSULIN DETEMIR) 1 UNITS/0.01ML SC SCH (22:06)
[2016-07-27 06:00] VITALS: BP 118/62
[2016-07-27 09:40] VITALS: BP 118/55
[2016-07-27] MEDS: ISOSORBIDE MON. (ISMO,MONOKET) 20 MG TAB PO SCH (09:40)
[2016-07-27] MEDS: CARVedilol 12.5 MG TAB PO SCH (09:40)
[2016-07-27] MEDS: TORSEMIDE 10 MG TABLET PO SCH (09:40)
[2016-07-27] MEDS: SPIRONOLACTONE 12.5MG PER 1/2 TABLET PO SCH (09:40)
[2016-07-27] MEDS: ENTRESTO 24-26MG TABLET (SACUBITRIL/VALSARTAN) PO SCH (09:40)
[2016-07-27] MEDS: FAMOTIDINE 20 MG TAB PO SCH (09:40)
[2016-07-27] MEDS: ASPIRIN 81 MG ENTERIC TAB PO SCH (09:40)
[2016-07-27] MEDS: HumaLOG INSULIN (NovoLOG) PER UNIT SC SCH ×2 (09:41→12:23)
--- NOTE | 2016-07-27 14:24 | IPNPDOC ---
Subjective Date Seen The patient was seen on 07/27/16. Subjective Chief Complaint/HPI The patient is a 70-year-old female admitted with a reason for visit of Pulmonary Edema. General: Denies: Chills, Night Sweats Constitutional: Denies: Chills, Fever Eyes: Denies: Pain, Vision change ENT: Denies: Ear Pain, Head Aches Skin: Denies: Lesions, Rash Pulmonary: Denies: Cough, Dyspnea Cardiovascular: Denies: Chest Pain, Palpitations Gastrointestinal: Denies: Nausea, Vomiting Genitourinary: Denies: Dysuria, Frequency Hematologic: Denies: Bleeding Excessively, Bruising Musculoskeletal: Denies: Back Pain, Neck Pain Objective Physical Examination General Exam: Positive: Alert, Cooperative, No Acute Distress ENT Exam: Positive: Atraumatic, Mucous membr. moist/pink Neck Exam: Negative: JVD Chest Exam: Positive: Clear to auscultation, Normal air movement Heart Exam: Positive: Normal S1, Normal S2, Rate Normal Abdomen Exam: Positive: Soft, Negative: Tenderness Extremity Exam: Negative: Swelling, Tenderness Assessment /Plan Plan/VTE VTE Prophylaxis Ordered?: Yes Plan Chest pain likely 2/2 demand ischemia from Decompensated CHF EKG without acute changes Troponins with mild elevation during hospitalization Cont Isosorbide mononitrate and nitroglycerin PRN Appreciate Dr. Zheng of Cardiology input Patient has been without chest pain and has remained stable since admission Decompensated Combined Systolic and Diastolic CHF Likely 2/2 non-compliance with medications s/p Lasix IV Patient has adequately diuresed with IV diuretics and appears euvolemic at this time Cont Entresto, Carvedilol, Spironolactone, Torsemide CAD s/p stents, Hx of [place] Cont ASA and Atorvastatin Chronic atrial fibrillation Cont carvedilol, Xarelto HTN,stable Dyslipidemia Cont atorvastatin Type 2 DM Cont ISS and Levemir Stage 3 CKD Serum Cr at baseline MISTY not compliant with CPAP Discussed the risks and benefits of this with the patient and have advised her to wear her CPAP device Chronic anemia / MDS Hgb has remained stable GERD Cont PPI DVT prophylaxis Already on Xarelto Disposition: Patient medically stable for discharge today and there have been no acute events since the patient's original D/C date and summary on 07/25/16. Please refer to my colleague Dr. Stroud's D/C summary on 07/25/16 for the patient' s discharge summary. VS, I&O, 24H, Fishbone Vital Signs/I&O Vital Signs Date Time Temp Pulse Resp B/P Pulse Ox O2 Delivery O2 Flow Rate FiO2 07/27/16 09:40 72 118/55 07/27/16 06:00 96.6 16 96 Room Air I&O- Last 24 Hours up to 6 AM 07/27/16 06:00 Intake Total 1020 ml Output Total 1600 ml Balance -580 ml Laboratory Data 24H LABS Laboratory Tests 2 07/26/16 16:44: Bedside Glucose (Misc Panel) 291H 07/26/16 21:23: Bedside Glucose (Misc Panel) 304H 07/27/16 06:47: Bedside Glucose (Misc Panel) 215H 07/27/16 11:48: Bedside Glucose (Misc Panel) 448H NINI BUTLER MD Jul 27, 2016 14:24 NINI BUTLER MD Jul 27, 2016 14:24
--- NOTE | 2016-07-27 14:28 | IPNPDOC ---
Subjective Date Seen The patient was seen on 07/26/16. Subjective Chief Complaint/HPI The patient is a 70-year-old female admitted with a reason for visit of Pulmonary Edema. General: Denies: Chills, Night Sweats Constitutional: Denies: Chills, Fever Eyes: Denies: Pain, Vision change ENT: Denies: Ear Pain, Head Aches Skin: Denies: Lesions, Rash Pulmonary: Denies: Cough Cardiovascular: Denies: Chest Pain, Palpitations Gastrointestinal: Denies: Nausea, Vomiting Genitourinary: Denies: Dysuria, Frequency Hematologic: Denies: Bleeding Excessively, Bruising Objective Physical Examination General Exam: Positive: Alert, Cooperative, No Acute Distress ENT Exam: Positive: Atraumatic, Mucous membr. moist/pink Neck Exam: Negative: JVD Chest Exam: Positive: Clear to auscultation, Normal air movement Heart Exam: Positive: Normal S1, Normal S2, Rate Normal Abdomen Exam: Positive: Soft, Negative: Tenderness Extremity Exam: Negative: Swelling, Tenderness Assessment /Plan Plan/VTE VTE Prophylaxis Ordered?: Yes Plan Chest pain likely 2/2 demand ischemia from Decompensated CHF EKG without acute changes Troponins with mild elevation during hospitalization Cont Isosorbide mononitrate and nitroglycerin PRN Appreciate Dr. Zheng of Cardiology input Patient has been without chest pain and has remained stable since admission Decompensated Combined Systolic and Diastolic CHF Likely 2/2 non-compliance with medications s/p Lasix IV Patient has adequately diuresed with IV diuretics and appears euvolemic at this time Cont Entresto, Carvedilol, Spironolactone, Torsemide CAD s/p stents, Hx of [place] Cont ASA and Atorvastatin Chronic atrial fibrillation Cont carvedilol, Xarelto HTN,stable Dyslipidemia Cont atorvastatin Type 2 DM Cont ISS and Levemir Stage 3 CKD Serum Cr at baseline MISTY not compliant with CPAP Discussed the risks and benefits of this with the patient and have advised her to wear her CPAP device Chronic anemia / MDS Hgb has remained stable GERD Cont PPI DVT prophylaxis Already on Xarelto Disposition: There has been concerns with the patient's family regarding a safe discharge home for the patient, and they are requesting that the patient be set up to be transferred to an assisted living facility. At this time the patient has cleared Physical Therapy, and the patient herself is eager to go home and appears to be able to make her own decisions. The patient's family has filed an appeal with the patient's insurance company regarding her discharge. We will follow up with PFS/CM for further delineation of the patients disposition. VS, I&O, 24H, Fishbone Vital Signs/I&O Vital Signs Date Time Temp Pulse Resp B/P Pulse Ox O2 Delivery O2 Flow Rate FiO2 07/26/16 16:00 108/62 07/26/16 14:00 95.9 74 18 97 Room Air I&O- Last 24 Hours up to 6 AM 07/26/16 06:00 Intake Total 870 ml Output Total 2050 ml Balance -1180 ml Laboratory Data 24H LABS Laboratory Tests 2 07/25/16 20:07: Bedside Glucose (Misc Panel) 424H 07/26/16 06:38: Blood Urea Nitrogen 42H, Creatinine 1.37H, Sodium Level 139, Potassium Level 4.4 , Chloride Level 102, Carbon Dioxide Level 28, Calcium Level 8.9, Aspartate Amino Transf (AST/SGOT) 14L, Alanine Aminotransferase (ALT/SGPT) 20, Alkaline Phosphatase 67, Total Bilirubin 0.3, Total Protein 7.2, Albumin 3.6, Albumin/ Globulin Ratio 1.00, Anion Gap 9, Glomerular Filtration Rate 40.6 07/26/16 11:40: Bedside Glucose (Misc Panel) 374H 07/26/16 16:44: Bedside Glucose (Misc Panel) 291H CBC/BMP Laboratory Tests 07/26/16 06:38 Calcium Level 8.9, Aspartate Amino Transf (AST/SGOT) 14 L, Alanine Aminotransferase (ALT/SGPT) 20, Alkaline Phosphatase 67, Total Bilirubin 0.3, Total Protein 7.2, Albumin 3.6 07/26/16 06:39 Red Blood Count 3.29 L, Mean Corpuscular Volume 92.7, Mean Corpuscular Hemoglobin 30.6, Mean Corpuscular Hemoglobin Concent 33.0, Red Cell Distribution Width 16.3 H INNI BUTLER MD Jul 26, 2016 17:56
== END 2016-07-27 15:58 | disposition home health service (06) | DRG 291 ==
LOC: M ED 10:01 → M ED INP 14:44 → M PCU 21:03 → M MSPAV 07-22 13:36
PROVIDERS: ADMIT Internal Medicine; ATTEND Internal Medicine
DX: I13.0 Hypertensive heart and chronic kidney disease with heart failure and stage 1 through stage 4 chronic kidney disease, or unspecified chronic kidney disease (principal); I50.43 Acute on chronic combined systolic (congestive) and diastolic (congestive) heart failure; N18.3 Chronic kidney disease, stage 3 (moderate); Z66 Do not resuscitate; I25.10 Atherosclerotic heart disease of native coronary artery without angina pectoris; I25.2 Old myocardial infarction; I48.91 Unspecified atrial fibrillation; J44.9 Chronic obstructive pulmonary disease, unspecified; Z95.810 Presence of automatic (implantable) cardiac defibrillator; E11.9 Type 2 diabetes mellitus without complications; E78.5 Hyperlipidemia, unspecified; G47.33 Obstructive sleep apnea (adult) (pediatric); G25.81 Restless legs syndrome; K21.9 Gastro-esophageal reflux disease without esophagitis; Z79.4 Long term (current) use of insulin; D46.9 Myelodysplastic syndrome, unspecified; Z88.5 Allergy status to narcotic agent; Z88.8 Allergy status to other drugs, medicaments and biological substances; I34.0 Nonrheumatic mitral (valve) insufficiency; Z88.0 Allergy status to penicillin; I25.5 Ischemic cardiomyopathy; Z91.040 Latex allergy status; Z91.19 Patient's noncompliance with other medical treatment and regimen

== ENCOUNTER → 2016-09-09 | Outpatient (REF) | payer MEDICARE, OTHER ==
[~2016-09-09] MED LIST changes: +AMIT100TA PO; +ASPI1TAB PO; +ATOR40TA; +ATOR40TA PO; +CARV12.5 PO; +CARV25TA; +CARV25TA PO; +CLOB05OI TOP; +DEMADEX; +DIGO0.12 PO; +DRIS50002 PO; +ENTR1TAB; +ENTR1TAB PO; +FAMO20TA PO; +INSUH10VL SC; +ISOS1TAB12; +ISOS1TAB12 PO; +ISOS20TA PO; +MAGN400T2; +MAGN400T5 PO; +METF500T PO; +NITR4TASL SL; +PANT20TA PO; +PROT20TA11; +SPIR25TA2 PO; +TORS10TA3 PO; +TORS5TAB2 PO; +TYLE650T35 PO; +XARE20TA PO
[2016-09-09 13:26] LABS: PERCENT SATURATION 16.4 % (13.2-37.4)
== END ==
LOC: M LAB REF 12:10
PROVIDERS: ATTEND Internal Medicine Medical Oncology
DX: D50.9 Iron deficiency anemia, unspecified (principal)

== ENCOUNTER → 2016-10-19 | Outpatient (REF) | payer MEDICARE, OTHER ==
[~2016-10-19] MED LIST changes: +CLOP75TA2 PO
== END ==
LOC: M LAB REF 16:46
PROVIDERS: ATTEND Internal Medicine Medical Oncology
DX: D46.9 Myelodysplastic syndrome, unspecified (principal); D50.9 Iron deficiency anemia, unspecified

== ENCOUNTER → 2016-11-24 | Outpatient (REF) | payer MEDICARE, OTHER ==
[~2016-11-24] MED LIST changes: -ATOR40TA; -ATOR40TA PO; +ATOR40TA75; +ATOR40TA75 PO; -METF500T PO; +METF500T13 PO
[2016-11-24 19:21] LABS: PERCENT SATURATION 15.5 % (13.2-37.4)
== END ==
LOC: M LAB REF 16:40
PROVIDERS: ATTEND Internal Medicine Medical Oncology
DX: D46.9 Myelodysplastic syndrome, unspecified (principal); D50.9 Iron deficiency anemia, unspecified

== ENCOUNTER → 2016-12-28 | Outpatient (REF) | payer MEDICARE, OTHER | LOC: M LAB REF 13:17 | PROVIDERS: ATTEND Nurse Practitioner Family | DX: E11.69 Type 2 diabetes mellitus with other specified complication (principal) ==

== ENCOUNTER → 2017-04-21 | Outpatient (REF) | payer MEDICARE, OTHER ==
[2017-04-21 14:37] LABS: PERCENT SATURATION 12.7 % (13.2-45.0)
[2017-04-21 15:12] LABS: FOLATE 14.2 NG/ML
== END ==
LOC: M LAB REF 13:28
PROVIDERS: ATTEND Internal Medicine Nephrology
DX: N18.9 Chronic kidney disease, unspecified (principal); D63.1 Anemia in chronic kidney disease

== ENCOUNTER → 2017-10-10 | Outpatient (REF) | payer MEDICARE, OTHER ==
[2017-10-10 14:28] LABS: FERRITIN 288 NG/ML (8-252); IRON (FE) 38 UG/DL (50-170); PERCENT SATURATION 12.5 % (13.2-45.0); TOTAL IRON BINDING CAPACITY 303 UG/DL (250-450)
== END ==
LOC: M LAB REF 13:40
DX: D50.9 Iron deficiency anemia, unspecified (principal); D63.0 Anemia in neoplastic disease
CPT/HCPCS: 83550

== ENCOUNTER → 2017-10-30 | Outpatient (REF) | payer MEDICARE, OTHER ==
[2017-10-30 18:55] LABS: FERRITIN 72 NG/ML (8-252); IRON (FE) 42 UG/DL (50-170); PERCENT SATURATION 11.8 % (13.2-45.0); TOTAL IRON BINDING CAPACITY 356 UG/DL (250-450)
[2017-10-31 14:31] LABS: IMMEDIATE SPIN CROSSMATCH 1 1
== END ==
LOC: M LAB REF 17:23
DX: D50.9 Iron deficiency anemia, unspecified (principal)
CPT/HCPCS: 83550

== ENCOUNTER 2017-10-31 14:09 | Outpatient (CLI) | payer MEDICARE, OTHER ==
[2017-10-31] MEDS: diphenhydrAMINE 25 MG CAP PO (14:26)
[2017-10-31] MEDS: FUROSEMIDE 20 MG/2 ML VIAL (J1940) IV (16:30)
== END 2017-10-31 17:00 | disposition home or self-care (01) ==
LOC: M INFU 14:09
DX: D50.9 Iron deficiency anemia, unspecified (principal); Z91.040 Latex allergy status; Z88.0 Allergy status to penicillin; Z88.5 Allergy status to narcotic agent; Z79.82 Long term (current) use of aspirin; Z79.899 Other long term (current) drug therapy; Z79.01 Long term (current) use of anticoagulants; Z79.4 Long term (current) use of insulin
CPT/HCPCS: 36430

== ENCOUNTER → 2018-03-26 | Outpatient (REF) | payer MEDICARE, OTHER ==
[2018-03-26 17:54] LABS: URINE TOTAL PROTEIN 112.5 MG/DL (0-12)
[2018-03-26 18:02] LABS: FERRITIN 309 NG/ML (8-252); IRON (FE) 25 UG/DL (50-170); PERCENT SATURATION 7.9 % (13.2-45.0); TOTAL IRON BINDING CAPACITY 316 UG/DL (250-450); TOTAL PROTEIN 6.7 GM/DL (6.4-8.2)
[2018-03-27 13:47] LABS: ALBUMIN 3.16 GM/DL (3.29-5.55); ALBUMIN % 47.1 % (55.8-66.1); ALPHA-1-GLOBULIN % 7.5 % (2.9-4.9); ALPHA-2-GLOBULINS 0.97 GM/DL (0.42-0.99); ALPHA-2-GLOBULINS % 14.5 % (7.1-11.8); BETA-2-GLOBULINS 0.44 GM/DL (0.19-0.55); BETA-2-GLOBULINS % 6.5 % (3.2-6.5); GAMMA GLOBULIN % 18.4 % (11.1-18.8); GAMMA GLOBULINS 1.23 GM/DL (0.65-1.58)
[2018-03-29 00:08] LABS: FREE KAPPA LIGHT CHAINS SERUM 101.4 mg/L (3.3-19.4); FREE LAMBDA LIGHT CHAINS SERUM 49.3 mg/L (5.7-26.3); KAPPA/LAMBDA RATIO SERUM 2.06 (0.26-1.65)
[2018-03-29 14:36] LABS: UPEP INTERPRETATION NO M-SPIKE NOTED; URINE VOLUME RANDOM ML
== END ==
LOC: M LAB REF 17:23
DX: R80.9 Proteinuria, unspecified (principal); E07.9 Disorder of thyroid, unspecified
CPT/HCPCS: 83550

== ENCOUNTER 2018-04-06 18:23 | Inpatient (IN) | payer MEDICARE, OTHER ==
[2018-04-06] MEDS: ACETAMINOPHEN 650MG ER TAB (TYLENOL ARTHRITIS) PO (21:00)
[2018-04-06] MEDS: ATORVASTATIN 20 MG TAB PO (21:00)
[2018-04-06 21:13] LABS: BASO % 0.2 % (0.0-1.0); EOS % 0.1 % (0.0-3.0); HEMATOCRIT 29.9 % (36.0-47.0); HEMOGLOBIN 8.7 g/dl (12.0-15.5); LYMPH # 0.8 10^3/uL (1.5-4.5); LYMPH % 4.1 % (24.0-44.0); MEAN CORPUSCULAR HEMOGLOBIN 27.1 pg (27.0-33.0); MEAN CORPUSCULAR HGB CONC 29.1 g/dl (32.0-36.5); MEAN CORPUSCULAR VOLUME 93.1 fl (80.0-96.0); MONO # 0.9 10^3/uL (0.0-0.8); NEUTROPHILS # 16.5 10^3/uL (1.8-7.7); NEUTROPHILS % 89.6 % (36.0-66.0); PLATELET COUNT, AUTOMATED 266 10^3/uL (150-450); RED BLOOD COUNT 3.21 10^6/uL (4.00-5.40); RED CELL DISTRIBUTION WIDTH 17.4 % (11.5-14.5); WHITE BLOOD COUNT 18.4 10^3/uL (4.0-10.0)
[2018-04-06] MEDS ORDERED: DEXTROSE 50% 50 ML SYRINGE IV (21:30)
[2018-04-06] MEDS ORDERED: GLUCAGON FOR INJ 1 MG VIAL (J1610) SC (21:30)
[2018-04-06] MEDS ORDERED: GLUCOSE 4 GM CHEW TABLET PO (21:30)
[2018-04-06 21:38] LABS: ALBUMIN 2.8 GM/DL (3.2-5.2); ALBUMIN/GLOBULIN RATIO 0.72 (1.00-1.93); ALKALINE PHOSPHATASE 138 U/L (45-117); ALT/SGPT 741 U/L (12-78); ANION GAP 14 MEQ/L (8-16); AST/SGOT 880 U/L (7-37); BILIRUBIN,TOTAL 1.8 MG/DL (0.2-1.0); BLOOD UREA NITROGEN 35 MG/DL (7-18); CALCIUM LEVEL 8.2 MG/DL (8.8-10.2); CARBON DIOXIDE LEVEL 16 MEQ/L (21-32); CHLORIDE LEVEL 110 MEQ/L (98-107); CREATININE FOR GFR 1.39 MG/DL (0.55-1.30); GLOMERULAR FILTRATION RATE 39.7 (>39); GLUCOSE, FASTING 68 MG/DL (70-100); POTASSIUM SERUM 5.2 MEQ/L (3.5-5.1); SODIUM LEVEL 140 MEQ/L (136-145); TOTAL PROTEIN 6.7 GM/DL (6.4-8.2); TROPONIN I 0.06 NG/ML (< 0.10)
[2018-04-06] MEDS: CEFEPIME HCL 1 GM in D5W MINI-BAG PLUS 50 ML IV (22:12)
[2018-04-06] MEDS: ENTRESTO 24-26MG TABLET (SACUBITRIL/VALSARTAN) PO (22:12)
[2018-04-06] MEDS: THIAMINE HCL 200 MG/2 ML VIAL (J3411) IV (22:12)
[2018-04-06] MEDS: GABAPENTIN 100 MG CAP PO (22:12)
[2018-04-06] MEDS: AMITRIPTYLINE 50 MG TAB PO (22:13)
[2018-04-06 22:39] LABS: BEDSIDE GLUCOSE 61 MG/DL (83-110)
[2018-04-06 22:56] LABS: BEDSIDE GLUCOSE 81 MG/DL (83-110)
[2018-04-06 23:36] LABS: BEDSIDE GLUCOSE 112 MG/DL (83-110)
[2018-04-07 05:51] LABS: BASO % 0.2 % (0.0-1.0); HEMATOCRIT 27.5 % (36.0-47.0); HEMOGLOBIN 8.1 g/dl (12.0-15.5); IMMATURE GRANULOCYTE % 1.1 % (0-3.0); LYMPH # 0.7 10^3/uL (1.5-4.5); LYMPH % 3.9 % (24.0-44.0); MEAN CORPUSCULAR HEMOGLOBIN 26.9 pg (27.0-33.0); MEAN CORPUSCULAR HGB CONC 29.5 g/dl (32.0-36.5); MEAN CORPUSCULAR VOLUME 91.4 fl (80.0-96.0); MONO # 0.7 10^3/uL (0.0-0.8); MONO % 4.3 % (0.0-5.0); NEUTROPHILS # 15.2 10^3/uL (1.8-7.7); NEUTROPHILS % 90.5 % (36.0-66.0); PLATELET COUNT, AUTOMATED 201 10^3/uL (150-450); RED BLOOD COUNT 3.01 10^6/uL (4.00-5.40); RED CELL DISTRIBUTION WIDTH 17.4 % (11.5-14.5); WHITE BLOOD COUNT 16.8 10^3/uL (4.0-10.0)
[2018-04-07 06:27] LABS: ALBUMIN 2.5 GM/DL (3.2-5.2); ALBUMIN/GLOBULIN RATIO 0.64 (1.00-1.93); ALKALINE PHOSPHATASE 126 U/L (45-117); ALT/SGPT 970 U/L (12-78); ANION GAP 10 MEQ/L (8-16); AST/SGOT 1234 U/L (7-37); BILIRUBIN,TOTAL 1.8 MG/DL (0.2-1.0); BLOOD UREA NITROGEN 34 MG/DL (7-18); CALCIUM LEVEL 7.9 MG/DL (8.8-10.2); CARBON DIOXIDE LEVEL 19 MEQ/L (21-32); CHLORIDE LEVEL 110 MEQ/L (98-107); CREATININE FOR GFR 1.23 MG/DL (0.55-1.30); GLOMERULAR FILTRATION RATE 45.7 (>39); GLUCOSE, FASTING 101 MG/DL (70-100); SODIUM LEVEL 139 MEQ/L (136-145); TOTAL PROTEIN 6.4 GM/DL (6.4-8.2)
[2018-04-07] MEDS: IPRATROPIUM 0.5MG/ALBUTEROL 2.5MG INH SOL UD 3ML (DUONEB)(J7620) NEB ×4 (07:21→20:18)
[2018-04-07] MEDS: HumaLOG INSULIN (NovoLOG) PER UNIT SC ×3 (07:30→18:00)
[2018-04-07] MEDS ORDERED: LEVEMIR (INSULIN DETEMIR) 1 UNITS/0.01ML SC (09:00)
[2018-04-07] MEDS ORDERED: FUROSEMIDE 20 MG/2 ML VIAL (J1940) IV (09:00)
[2018-04-07] MEDS ORDERED: SPIRONOLACTONE 12.5MG PER 1/2 TABLET PO (09:00)
[2018-04-07] MEDS: FUROSEMIDE 40 MG/4 ML VIAL (J1940) IV ×3 (09:00→19:39)
[2018-04-07] MEDS: PANTOPRAZOLE 20 MG TAB PO (09:25)
[2018-04-07] MEDS: ENTRESTO 24-26MG TABLET (SACUBITRIL/VALSARTAN) PO (09:25)
[2018-04-07] MEDS: GABAPENTIN 100 MG CAP PO (09:26)
[2018-04-07] MEDS: METOPROLOL SUCC (TopROL XL) 100MG *XL* TAB PO (09:26)
[2018-04-07] MEDS: MULTIVITAMINS/MINERALS THERAP 1 TAB PO (09:26)
[2018-04-07] MEDS: FERROUS GLUCONATE 324 MG TAB PO (09:26)
[2018-04-07] MEDS: NYSTATIN 100,000 UNITS/GM TOPICAL PWD 15 GM TOP ×2 (09:26→20:45)
[2018-04-07] MEDS: CEFEPIME HCL 1 GM in D5W MINI-BAG PLUS 50 ML IV ×2 (09:27→20:45)
[2018-04-07 09:44] LABS: ABG BASE EXCESS -4.6 (-2.0-2.0); ABG O2 SATURATION 95.2 % (95.0-99.0); ABG PARTIAL PRESSURE CO2 24.8 mmHg (35.0-45.0); ABG PARTIAL PRESSURE O2 75.9 mmHg (75.0-100.0); ABG STANDARD HCO3 20.6 MEQ/L (22.0-26.0); ABG TOTAL CO2 18.7 MEQ/L (23.0-31.0); ABG pH (ARTERIAL) 7.478 UNITS (7.350-7.450)
[2018-04-07 10:01] LABS: LACTIC ACID SEPSIS PROTOCOL 3.2 MMOL/L (0.4-2.0)
[2018-04-07 11:38] LABS: BEDSIDE GLUCOSE 89 MG/DL (83-110)
[2018-04-07 12:55] LABS: PROTHROMBIN TIME 67.4 SECONDS (12.1-14.4)
[2018-04-07 13:20] LABS: INR 7.73
[2018-04-07] MEDS: NS 1,000 ML IV ×2 (13:40→23:30)
[2018-04-07] MEDS: PHYTONADIONE 5 MG TAB PO (14:35)
[2018-04-07 16:56] LABS: BEDSIDE GLUCOSE 249 MG/DL (83-110)
[2018-04-07 17:37] LABS: TYPE AND SCREEN 1
[2018-04-07] MEDS: THIAMINE HCL 200 MG/2 ML VIAL (J3411) IV (20:45)
[2018-04-07 20:52] LABS: BEDSIDE GLUCOSE 231 MG/DL (83-110)
[2018-04-07] MEDS: methylPREDNISolone INJ 125 MG/2 ML VIAL (J2930) IV (23:56)
[2018-04-08 00:04] LABS: INR 4.93; PROTHROMBIN TIME 47.2 SECONDS (12.1-14.4)
[2018-04-08 00:12] LABS: ALBUMIN/GLOBULIN RATIO 0.75 (1.00-1.93); ALKALINE PHOSPHATASE 151 U/L (45-117); ALT/SGPT 935 U/L (12-78); ANION GAP 15 MEQ/L (8-16); AST/SGOT 786 U/L (7-37); BILIRUBIN,TOTAL 2.4 MG/DL (0.2-1.0); BLOOD UREA NITROGEN 35 MG/DL (7-18); CALCIUM LEVEL 7.9 MG/DL (8.8-10.2); CARBON DIOXIDE LEVEL 19 MEQ/L (21-32); CHLORIDE LEVEL 104 MEQ/L (98-107); CREATININE FOR GFR 1.64 MG/DL (0.55-1.30); GLOMERULAR FILTRATION RATE 32.8 (>39); GLUCOSE, FASTING 237 MG/DL (70-100); POTASSIUM SERUM 4.7 MEQ/L (3.5-5.1); SODIUM LEVEL 138 MEQ/L (136-145)
[2018-04-08] MEDS: IPRATROPIUM 0.5MG/ALBUTEROL 2.5MG INH SOL UD 3ML (DUONEB)(J7620) NEB ×5 (00:15→20:00)
[2018-04-08 00:17] LABS: ABG BASE EXCESS -5.4 (-2.0-2.0); ABG HCO3 17.1 MEQ/L (22.0-26.0); ABG O2 SATURATION 98.2 % (95.0-99.0); ABG PARTIAL PRESSURE CO2 23.5 mmHg (35.0-45.0); ABG PARTIAL PRESSURE O2 109.1 mmHg (75.0-100.0); ABG TOTAL CO2 17.8 MEQ/L (23.0-31.0)
[2018-04-08 00:19] LABS: LACTIC ACID SEPSIS PROTOCOL 6.5 MMOL/L (0.4-2.0)
[2018-04-08] MEDS: FUROSEMIDE 40 MG/4 ML VIAL (J1940) IV ×3 (00:20→23:16)
[2018-04-08 01:13] LABS: APPEARANCE, URINE CLEAR (CLEAR); BACTERIA, URINE AUTO 1+ (NEGATIVE); BILIRUBIN, URINE AUTO NEGATIVE (NEGATIVE); BLOOD, URINE BLOOD 2+ (NEGATIVE); COLOR, URINE YELLOW (YELLOW); GLUCOSE, URINE (UA) AUTO NEGATIVE (NEGATIVE); KETONE, URINE AUTO NEGATIVE (NEGATIVE); LEUKOCYTE ESTERASE, URINE AUTO NEGATIVE (NEGATIVE); MUCUS, URINE SMALL (NEGATIVE); NITRITE, URINE AUTO NEGATIVE (NEGATIVE); PROTEIN, URINE AUTO NEGATIVE (NEGATIVE); RBC, URINE AUTO 5 /HPF (0-3); SPECIFIC GRAVITY URINE AUTO 1.006 (1.002-1.035); SQUAMOUS EPITHELIAL CELL UR AU 0 /HPF (0-6); UROBILINOGEN, URINE AUTO 0.2 mg/dL (0.0-2.0); WBC, URINE AUTO 0 /HPF (0-3)
[2018-04-08] MEDS: PHYTONADIONE 5 MG TAB PO (01:41)
[2018-04-08 04:06] LABS: BASO % 0.1 % (0.0-1.0); HEMATOCRIT 26.6 % (36.0-47.0); HEMOGLOBIN 7.8 g/dl (12.0-15.5); IMMATURE GRANULOCYTE % 1.4 % (0-3.0); LYMPH % 1.2 % (24.0-44.0); MEAN CORPUSCULAR HEMOGLOBIN 27.1 pg (27.0-33.0); MEAN CORPUSCULAR HGB CONC 29.3 g/dl (32.0-36.5); MEAN CORPUSCULAR VOLUME 92.4 fl (80.0-96.0); MONO # 0.3 10^3/uL (0.0-0.8); NEUTROPHILS # 13.1 10^3/uL (1.8-7.7); NEUTROPHILS % 95.3 % (36.0-66.0); PLATELET COUNT, AUTOMATED 134 10^3/uL (150-450); RED BLOOD COUNT 2.88 10^6/uL (4.00-5.40); RED CELL DISTRIBUTION WIDTH 17.4 % (11.5-14.5); WHITE BLOOD COUNT 13.8 10^3/uL (4.0-10.0)
[2018-04-08 04:18] LABS: INR 4.46; PROTHROMBIN TIME 43.6 SECONDS (12.1-14.4)
[2018-04-08 04:29] LABS: ALBUMIN/GLOBULIN RATIO 0.73 (1.00-1.93); ALKALINE PHOSPHATASE 146 U/L (45-117); ALT/SGPT 880 U/L (12-78); ANION GAP 14 MEQ/L (8-16); AST/SGOT 661 U/L (7-37); BILIRUBIN,TOTAL 2.6 MG/DL (0.2-1.0); BLOOD UREA NITROGEN 35 MG/DL (7-18); CALCIUM LEVEL 8.4 MG/DL (8.8-10.2); CARBON DIOXIDE LEVEL 21 MEQ/L (21-32); CHLORIDE LEVEL 103 MEQ/L (98-107); CREATININE FOR GFR 1.61 MG/DL (0.55-1.30); GLOMERULAR FILTRATION RATE 33.5 (>39); GLUCOSE, FASTING 276 MG/DL (70-100); POTASSIUM SERUM 4.1 MEQ/L (3.5-5.1); SODIUM LEVEL 138 MEQ/L (136-145); TOTAL PROTEIN 7.1 GM/DL (6.4-8.2)
[2018-04-08 04:39] LABS: LYMPH # 0.2 10^3/uL (1.5-4.5); POSITIVE DIFF POS FLAG
[2018-04-08 07:24] LABS: BEDSIDE GLUCOSE 316 MG/DL (83-110)
[2018-04-08] MEDS: METOPROLOL SUCC (TopROL XL) 100MG *XL* TAB PO (09:00)
[2018-04-08] MEDS ORDERED: METOPROLOL SUCC (TopROL XL) 50MG **XL** TAB PO (09:47)
[2018-04-08] MEDS: MULTIVITAMINS/MINERALS THERAP 1 TAB PO (09:48)
[2018-04-08] MEDS: NYSTATIN 100,000 UNITS/GM TOPICAL PWD 15 GM TOP ×2 (09:48→21:17)
[2018-04-08] MEDS: HumaLOG INSULIN (NovoLOG) PER UNIT SC ×3 (09:48→17:26)
[2018-04-08] MEDS: PANTOPRAZOLE 20 MG TAB PO (09:49)
[2018-04-08] MEDS: CEFEPIME HCL 1 GM in D5W MINI-BAG PLUS 50 ML IV ×2 (09:50→21:09)
[2018-04-08] MEDS ORDERED: VANCOMYCIN HCL 1,000 MG, VIAL MATE ADAPTER 1 EACH in D5W 250 ML IV (10:00)
[2018-04-08] MEDS: METOPROLOL SUCC (TopROL XL) 50MG **XL** TAB PO (10:16)
[2018-04-08] MEDS ORDERED: SLF 3 ML SYR IV (10:30)
[2018-04-08] MEDS: AZITHROMYCIN 250 MG TAB PO (10:49)
[2018-04-08] MEDS: ACETYLCYSTEINE 20% 30 ML VIAL PO (11:28)
[2018-04-08] MEDS: VANCOMYCIN HCL 500 MG in D5W MINI-BAG PLUS 100 ML IV (11:29)
[2018-04-08] MEDS: VANCOMYCIN HCL 750 MG, VIAL MATE ADAPTER 1 EACH in D5W 250 ML IV (11:29)
[2018-04-08] MEDS: SLF 3 ML SYR IV ×2 (11:42→22:00)
[2018-04-08 11:54] LABS: BEDSIDE GLUCOSE 372 MG/DL (83-110)
[2018-04-08 13:14] LABS: NT-PRO BNP 10112 PG/ML (<125); TROPONIN I 0.07 NG/ML (< 0.10)
[2018-04-08] MEDS: ACETYLCYSTEINE IV ×3 (14:51→20:48)
[2018-04-08] MEDS: D5W IV ×3 (14:51→20:48)
[2018-04-08] MEDS ORDERED: ACETYLCYSTEINE 20% 30 ML VIAL PO (15:00)
[2018-04-08 16:01] LABS: ABG BASE EXCESS -3.1 (-2.0-2.0); ABG HCO3 20.3 MEQ/L (22.0-26.0); ABG O2 SATURATION 98.3 % (95.0-99.0); ABG PARTIAL PRESSURE CO2 29.5 mmHg (35.0-45.0); ABG PARTIAL PRESSURE O2 101.3 mmHg (75.0-100.0); ABG STANDARD HCO3 21.9 MEQ/L (22.0-26.0); ABG TOTAL CO2 21.2 MEQ/L (23.0-31.0); ABG pH (ARTERIAL) 7.455 UNITS (7.350-7.450)
[2018-04-08 17:12] LABS: BEDSIDE GLUCOSE 330 MG/DL (83-110)
[2018-04-08 18:25] LABS: HEMATOCRIT 26.8 % (36.0-47.0); HEMOGLOBIN 7.9 g/dl (12.0-15.5); MEAN CORPUSCULAR HGB CONC 29.5 g/dl (32.0-36.5); MEAN CORPUSCULAR VOLUME 91.5 fl (80.0-96.0); PLATELET COUNT, AUTOMATED 135 10^3/uL (150-450); RED BLOOD COUNT 2.93 10^6/uL (4.00-5.40); RED CELL DISTRIBUTION WIDTH 17.3 % (11.5-14.5); WHITE BLOOD COUNT 14.9 10^3/uL (4.0-10.0)
[2018-04-08 18:40] LABS: PROTHROMBIN TIME 50.6 SECONDS (12.1-14.4)
[2018-04-08 18:50] LABS: ALBUMIN 2.7 GM/DL (3.2-5.2); ALBUMIN/GLOBULIN RATIO 0.71 (1.00-1.93); ALKALINE PHOSPHATASE 154 U/L (45-117); ALT/SGPT 870 U/L (12-78); ANION GAP 20 MEQ/L (8-16); AST/SGOT 474 U/L (7-37); BILIRUBIN,TOTAL 2.4 MG/DL (0.2-1.0); BLOOD UREA NITROGEN 46 MG/DL (7-18); CARBON DIOXIDE LEVEL 19 MEQ/L (21-32); CHLORIDE LEVEL 100 MEQ/L (98-107); CREATININE FOR GFR 1.72 MG/DL (0.55-1.30); GLUCOSE, FASTING 323 MG/DL (70-100); POTASSIUM SERUM 3.7 MEQ/L (3.5-5.1); SODIUM LEVEL 139 MEQ/L (136-145); TOTAL PROTEIN 6.5 GM/DL (6.4-8.2)
[2018-04-08 18:51] LABS: INR 5.38
[2018-04-08 19:14] LABS: AMMONIA 65 uMOL/L (<32)
[2018-04-08] MEDS: LORazepam 2 MG/ML VIAL (J2060) IV (19:41)
[2018-04-08 19:46] LABS: BEDSIDE GLUCOSE 333 MG/DL (83-110)
[2018-04-08 20:03] LABS: ABG BASE EXCESS -12.6 (-2.0-2.0); ABG HCO3 12.7 MEQ/L (22.0-26.0); ABG O2 SATURATION 96.7 % (95.0-99.0); ABG PARTIAL PRESSURE CO2 27.1 mmHg (35.0-45.0); ABG PARTIAL PRESSURE O2 104.2 mmHg (75.0-100.0); ABG STANDARD HCO3 14.5 MEQ/L (22.0-26.0); ABG TOTAL CO2 13.5 MEQ/L (23.0-31.0); ABG pH (ARTERIAL) 7.288 UNITS (7.350-7.450)
[2018-04-08] MEDS ORDERED: FLUMAZENIL 0.5 MG/5 ML VIAL As Ordered (20:24)
[2018-04-08] MEDS ORDERED: LORazepam 1 MG TAB As Ordered (20:24)
[2018-04-08] MEDS: THIAMINE HCL 200 MG/2 ML VIAL (J3411) IV (21:11)
[2018-04-08 21:44] LABS: TYPE AND SCREEN 1
[2018-04-08] MEDS ORDERED: ETOMIDATE INJ 20MG/10ML VIAL As Ordered (22:10)
[2018-04-08] MEDS ORDERED: fentaNYL 100 MCG/2 ML INJECTION (J3010) As Ordered (22:18)
[2018-04-08] MEDS: ETOMIDATE INJ 20MG/10ML VIAL IV (22:20)
[2018-04-08] MEDS: fentaNYL 100 MCG/2 ML INJECTION (J3010) IV (22:20)
[2018-04-08] MEDS ORDERED: MIDAZOLAM INJ 2 MG/2 ML VIAL (J2250) As Ordered (22:24)
[2018-04-08] MEDS: PROPOFOL 1,000 MG in APPROPRIATE DILUENT 1 EA IV (22:30)
[2018-04-08] MEDS ORDERED: PROPOFOL 1,000 MG/100 ML VIAL As Ordered (22:30)
[2018-04-08] MEDS: MIDAZOLAM INJ 2 MG/2 ML VIAL (J2250) IV (22:31)
[2018-04-08 22:51] LABS: TYPE AND SCREEN 1
[2018-04-08 23:33] LABS: ABG BASE EXCESS -3.6 (-2.0-2.0); ABG HCO3 20.7 MEQ/L (22.0-26.0); ABG O2 SATURATION 98.1 % (95.0-99.0); ABG PARTIAL PRESSURE O2 111.8 mmHg (75.0-100.0); ABG STANDARD HCO3 21.4 MEQ/L (22.0-26.0); ABG TOTAL CO2 21.7 MEQ/L (23.0-31.0); ABG pH (ARTERIAL) 7.402 UNITS (7.350-7.450)
[2018-04-08] MEDS: LACTULOSE 20 GM/30 ML SYRUP UD PO (23:36)
[2018-04-09 00:25] LABS: LACTIC ACID SEPSIS PROTOCOL 5.2 MMOL/L (0.4-2.0)
[2018-04-09 05:46] LABS: ABG BASE EXCESS 0.8 (-2.0-2.0); ABG HCO3 24.6 MEQ/L (22.0-26.0); ABG O2 SATURATION 96.5 % (95.0-99.0); ABG PARTIAL PRESSURE CO2 35.5 mmHg (35.0-45.0); ABG PARTIAL PRESSURE O2 88.4 mmHg (75.0-100.0); ABG STANDARD HCO3 25.2 MEQ/L (22.0-26.0); ABG TOTAL CO2 25.7 MEQ/L (23.0-31.0); ABG pH (ARTERIAL) 7.458 UNITS (7.350-7.450); BASO % 0.2 % (0.0-1.0); HEMATOCRIT 22.6 % (36.0-47.0); IMMATURE GRANULOCYTE % 2.3 % (0-3.0); LYMPH # 0.5 10^3/uL (1.5-4.5); LYMPH % 3.5 % (24.0-44.0); MEAN CORPUSCULAR HEMOGLOBIN 27.3 pg (27.0-33.0); MEAN CORPUSCULAR HGB CONC 30.1 g/dl (32.0-36.5); MEAN CORPUSCULAR VOLUME 90.8 fl (80.0-96.0); MONO # 0.5 10^3/uL (0.0-0.8); MONO % 3.5 % (0.0-5.0); NEUTROPHILS # 12.1 10^3/uL (1.8-7.7); NEUTROPHILS % 90.5 % (36.0-66.0); RED BLOOD COUNT 2.49 10^6/uL (4.00-5.40); RED CELL DISTRIBUTION WIDTH 17.6 % (11.5-14.5); WHITE BLOOD COUNT 13.3 10^3/uL (4.0-10.0)
[2018-04-09 05:56] LABS: INR 3.19; PROTHROMBIN TIME 33.4 SECONDS (12.1-14.4)
[2018-04-09 06:00] LABS: LACTIC ACID SEPSIS PROTOCOL 2.4 MMOL/L (0.4-2.0)
[2018-04-09] MEDS: SLF 3 ML SYR IV ×3 (06:00→21:09)
[2018-04-09 06:09] LABS: ALBUMIN 2.6 GM/DL (3.2-5.2); ALBUMIN/GLOBULIN RATIO 0.74 (1.00-1.93); ALKALINE PHOSPHATASE 147 U/L (45-117); ALT/SGPT 753 U/L (12-78); ANION GAP 13 MEQ/L (8-16); AST/SGOT 361 U/L (7-37); BILIRUBIN,TOTAL 2.5 MG/DL (0.2-1.0); BLOOD UREA NITROGEN 48 MG/DL (7-18); CALCIUM LEVEL 7.9 MG/DL (8.8-10.2); CARBON DIOXIDE LEVEL 26 MEQ/L (21-32); CHLORIDE LEVEL 98 MEQ/L (98-107); CREATININE FOR GFR 1.64 MG/DL (0.55-1.30); GLOMERULAR FILTRATION RATE 32.8 (>39); GLUCOSE, FASTING 371 MG/DL (70-100); MAGNESIUM LEVEL 1.5 MG/DL (1.8-2.4); PHOSPHORUS LEVEL 2.7 MG/DL (2.5-4.9); POTASSIUM SERUM 3.4 MEQ/L (3.5-5.1); SODIUM LEVEL 137 MEQ/L (136-145); TOTAL PROTEIN 6.1 GM/DL (6.4-8.2)
[2018-04-09] MEDS: HumaLOG INSULIN (NovoLOG) PER UNIT SC ×4 (06:15→23:36)
[2018-04-09 06:19] LABS: HEMOGLOBIN 6.8 g/dl (12.0-15.5); PLATELET COUNT, AUTOMATED 96 10^3/uL (150-450)
[2018-04-09 06:20] LABS: IMMATURE PLATELET FRACTION % 5.2 % (0.0-9.6)
[2018-04-09] MEDS: IPRATROPIUM 0.5MG/ALBUTEROL 2.5MG INH SOL UD 3ML (DUONEB)(J7620) NEB ×4 (07:59→20:10)
[2018-04-09] MEDS: METOPROLOL SUCC (TopROL XL) 50MG **XL** TAB PO (09:00)
[2018-04-09] MEDS: AZITHROMYCIN 250 MG TAB PO (09:00)
[2018-04-09] MEDS ORDERED: PANTOPRAZOLE 40MG TAB (PROTONIX) PO (09:00)
[2018-04-09] MEDS: MAG SULF 1GM/100ML (MAG RUN) 1 GM in APPROPRIATE DILUENT 1 EA IV (09:26)
[2018-04-09] MEDS: PANTOPRAZOLE 40MG INJ (PROTONIX) (C9113) IV (09:27)
[2018-04-09] MEDS: PROPOFOL 1,000 MG in APPROPRIATE DILUENT 1 EA IV ×3 (09:58→23:07)
[2018-04-09 10:05] LABS: ACETAMINOPHEN LEVEL < 2.0 UG/ML (10.0-30.0)
[2018-04-09 10:12] LABS: FERRITIN 6146 NG/ML (8-252); TRIGLYCERIDES LEVEL 110 MG/DL (<150)
[2018-04-09] MEDS: KCL 20MEQ IN 100ML SWI (KRUN) 20 MEQ in APPROPRIATE DILUENT 1 EA IV (10:57)
[2018-04-09] MEDS: CEFEPIME HCL 1 GM in D5W MINI-BAG PLUS 50 ML IV ×2 (10:57→20:19)
[2018-04-09] MEDS: fentaNYL CITRATE 1,000 MCG in NS 80 ML IV (11:18)
[2018-04-09 11:30] LABS: HEPATITIS B SURFACE ANTIBODY NEGATIVE (POSITIVE); HEPATITIS B SURFACE ANTIGEN NEGATIVE (NEGATIVE)
[2018-04-09 11:30] LABS: HEPATITIS C VIRUS ABY INDEX 0.1 INDEX (<0.8)
[2018-04-09] MEDS: VANCOMYCIN HCL 750 MG, VIAL MATE ADAPTER 1 EACH in D5W 250 ML IV (11:44)
[2018-04-09] MEDS: NYSTATIN 100,000 UNITS/GM TOPICAL PWD 15 GM TOP ×2 (11:45→20:19)
[2018-04-09] MEDS: MULTIVITAMINS/MINERALS THERAP 1 TAB PO (11:45)
[2018-04-09 12:19] LABS: BEDSIDE GLUCOSE 362 MG/DL (83-110)
[2018-04-09] MEDS: AZITHROMYCIN INJ 500 MG, VIAL MATE ADAPTER 1 EACH in D5W 250 ML IV (13:08)
[2018-04-09 14:13] LABS: IMMEDIATE SPIN CROSSMATCH 1 1
[2018-04-09 18:04] LABS: BEDSIDE GLUCOSE 345 MG/DL (83-110)
[2018-04-09] MEDS: THIAMINE HCL 200 MG/2 ML VIAL (J3411) IV (20:19)
[2018-04-09 23:34] LABS: BEDSIDE GLUCOSE 295 MG/DL (83-110)
[2018-04-10 04:05] LABS: BASO % 0.1 % (0.0-1.0); EOS % 0.1 % (0.0-3.0); HEMATOCRIT 26.4 % (36.0-47.0); HEMOGLOBIN 8.1 g/dl (12.0-15.5); IMMATURE GRANULOCYTE % 2.2 % (0-3.0); LYMPH # 0.8 10^3/uL (1.5-4.5); LYMPH % 5.1 % (24.0-44.0); MEAN CORPUSCULAR HEMOGLOBIN 27.1 pg (27.0-33.0); MEAN CORPUSCULAR HGB CONC 30.7 g/dl (32.0-36.5); MEAN CORPUSCULAR VOLUME 88.3 fl (80.0-96.0); MONO # 0.5 10^3/uL (0.0-0.8); MONO % 3.2 % (0.0-5.0); NEUTROPHILS # 13.6 10^3/uL (1.8-7.7); NEUTROPHILS % 89.3 % (36.0-66.0); PLATELET COUNT, AUTOMATED 116 10^3/uL (150-450); RED BLOOD COUNT 2.99 10^6/uL (4.00-5.40); RED CELL DISTRIBUTION WIDTH 17.9 % (11.5-14.5); WHITE BLOOD COUNT 15.2 10^3/uL (4.0-10.0)
[2018-04-10 04:33] LABS: INR 2.27; PROTHROMBIN TIME 25.5 SECONDS (12.1-14.4)
[2018-04-10 04:45] LABS: ALBUMIN 2.5 GM/DL (3.2-5.2); ALBUMIN/GLOBULIN RATIO 0.68 (1.00-1.93); ALKALINE PHOSPHATASE 144 U/L (45-117); ALT/SGPT 547 U/L (12-78); ANION GAP 10 MEQ/L (8-16); AST/SGOT 117 U/L (7-37); BILIRUBIN,TOTAL 2.1 MG/DL (0.2-1.0); BLOOD UREA NITROGEN 41 MG/DL (7-18); CALCIUM LEVEL 8.3 MG/DL (8.8-10.2); CARBON DIOXIDE LEVEL 28 MEQ/L (21-32); CHLORIDE LEVEL 101 MEQ/L (98-107); CREATININE FOR GFR 1.46 MG/DL (0.55-1.30); GLOMERULAR FILTRATION RATE 37.5 (>39); GLUCOSE, FASTING 222 MG/DL (70-100); MAGNESIUM LEVEL 1.8 MG/DL (1.8-2.4); PHOSPHORUS LEVEL 2.1 MG/DL (2.5-4.9); POTASSIUM SERUM 3.5 MEQ/L (3.5-5.1); SODIUM LEVEL 139 MEQ/L (136-145); TOTAL PROTEIN 6.2 GM/DL (6.4-8.2)
[2018-04-10] MEDS: HumaLOG INSULIN (NovoLOG) PER UNIT SC ×4 (05:10→23:18)
[2018-04-10] MEDS: SLF 3 ML SYR IV ×3 (05:10→22:00)
[2018-04-10] MEDS: PROPOFOL 1,000 MG in APPROPRIATE DILUENT 1 EA IV ×3 (05:48→18:02)
[2018-04-10 06:00] LABS: ABG BASE EXCESS 2.5 (-2.0-2.0); ABG HCO3 26.5 MEQ/L (22.0-26.0); ABG O2 SATURATION 98.8 % (95.0-99.0); ABG PARTIAL PRESSURE CO2 38.5 mmHg (35.0-45.0); ABG PARTIAL PRESSURE O2 139.1 mmHg (75.0-100.0); ABG STANDARD HCO3 26.7 MEQ/L (22.0-26.0); ABG TOTAL CO2 27.6 MEQ/L (23.0-31.0); ABG pH (ARTERIAL) 7.455 UNITS (7.350-7.450)
[2018-04-10] MEDS: IPRATROPIUM 0.5MG/ALBUTEROL 2.5MG INH SOL UD 3ML (DUONEB)(J7620) NEB ×4 (07:32→19:35)
[2018-04-10] MEDS: PANTOPRAZOLE 40MG INJ (PROTONIX) (C9113) IV (09:35)
[2018-04-10] MEDS: MULTIVITAMINS/MINERALS THERAP 1 TAB PO (09:35)
[2018-04-10] MEDS: NYSTATIN 100,000 UNITS/GM TOPICAL PWD 15 GM TOP ×2 (09:35→20:09)
[2018-04-10] MEDS: FUROSEMIDE 40 MG/4 ML VIAL (J1940) IV (10:35)
[2018-04-10] MEDS: CEFEPIME HCL 1 GM in D5W MINI-BAG PLUS 50 ML IV (10:38)
[2018-04-10] MEDS: NEUTRA-PHOS 1.25 GM PACKET PO ×2 (10:39→20:09)
[2018-04-10] MEDS: MAG SULF 1GM/100ML (MAG RUN) 1 GM in APPROPRIATE DILUENT 1 EA IV (10:39)
[2018-04-10 10:57] LABS: VANCOMYCIN LEVEL TROUGH 9.1 UG/ML (10.0-20.0)
[2018-04-10 11:24] LABS: AMMONIA 25 uMOL/L (<32)
[2018-04-10] MEDS: KCL 10MEQ/100ML SWI (KRUN) 10 MEQ in APPROPRIATE DILUENT 1 EA IV (12:00)
[2018-04-10] MEDS: VANCOMYCIN HCL 1,000 MG, VIAL MATE ADAPTER 1 EACH in D5W 250 ML IV (12:00)
[2018-04-10 12:31] LABS: BEDSIDE GLUCOSE 255 MG/DL (83-110)
[2018-04-10] MEDS: AZITHROMYCIN INJ 500 MG, VIAL MATE ADAPTER 1 EACH in D5W 250 ML IV (12:45)
[2018-04-10] MEDS: fentaNYL CITRATE 1,000 MCG in NS 80 ML IV (12:48)
[2018-04-10 14:14] LABS: ANTINUCLEAR ANTIBODIES DIRECT Negative (Negative); HEPATITIS B CORE ANTIBODY IGG Negative (Negative)
[2018-04-10] MEDS: diphenhydrAMINE INJ 50MG/ML VIAL (J1200) IV (16:18)
[2018-04-10] MEDS: EPINEPHrine INJ 1 MG/ML 1ML AMP IM (16:18)
[2018-04-10 17:52] LABS: BEDSIDE GLUCOSE 284 MG/DL (83-110)
[2018-04-10] MEDS: AZTREONAM 1 GM in D5W MINI-BAG PLUS 50 ML IV (17:55)
[2018-04-10] MEDS: THIAMINE HCL 200 MG/2 ML VIAL (J3411) IV (20:09)
[2018-04-10 23:17] LABS: BEDSIDE GLUCOSE 301 MG/DL (83-110)
[2018-04-11] MEDS: PROPOFOL 1,000 MG in APPROPRIATE DILUENT 1 EA IV (01:13)
[2018-04-11] MEDS: AZTREONAM 1 GM in D5W MINI-BAG PLUS 50 ML IV ×3 (01:13→18:19)
[2018-04-11 04:45] LABS: BASO % 0.2 % (0.0-1.0); EOS # 0.4 10^3/uL (0.0-0.50); EOS % 3.2 % (0.0-3.0); HEMATOCRIT 27.7 % (36.0-47.0); HEMOGLOBIN 8.5 g/dl (12.0-15.5); IMMATURE GRANULOCYTE % 2.2 % (0-3.0); LYMPH # 0.8 10^3/uL (1.5-4.5); LYMPH % 7.2 % (24.0-44.0); MEAN CORPUSCULAR HEMOGLOBIN 27.4 pg (27.0-33.0); MEAN CORPUSCULAR HGB CONC 30.7 g/dl (32.0-36.5); MEAN CORPUSCULAR VOLUME 89.4 fl (80.0-96.0); MONO # 0.3 10^3/uL (0.0-0.8); MONO % 2.6 % (0.0-5.0); NEUTROPHILS # 9.8 10^3/uL (1.8-7.7); NEUTROPHILS % 84.6 % (36.0-66.0); PLATELET COUNT, AUTOMATED 116 10^3/uL (150-450); WHITE BLOOD COUNT 11.5 10^3/uL (4.0-10.0)
[2018-04-11 05:08] LABS: ALBUMIN 2.3 GM/DL (3.2-5.2); ALBUMIN/GLOBULIN RATIO 0.64 (1.00-1.93); ALKALINE PHOSPHATASE 135 U/L (45-117); ALT/SGPT 376 U/L (12-78); ANION GAP 7 MEQ/L (8-16); AST/SGOT 48 U/L (7-37); BILIRUBIN,TOTAL 1.6 MG/DL (0.2-1.0); BLOOD UREA NITROGEN 49 MG/DL (7-18); CALCIUM LEVEL 8.3 MG/DL (8.8-10.2); CARBON DIOXIDE LEVEL 28 MEQ/L (21-32); CHLORIDE LEVEL 99 MEQ/L (98-107); CREATININE FOR GFR 1.78 MG/DL (0.55-1.30); GLOMERULAR FILTRATION RATE 29.8 (>39); GLUCOSE, FASTING 220 MG/DL (70-100); MAGNESIUM LEVEL 2.1 MG/DL (1.8-2.4); PHOSPHORUS LEVEL 2.6 MG/DL (2.5-4.9); SODIUM LEVEL 134 MEQ/L (136-145); TOTAL PROTEIN 5.9 GM/DL (6.4-8.2)
[2018-04-11] MEDS: HumaLOG INSULIN (NovoLOG) PER UNIT SC ×3 (06:00→18:18)
[2018-04-11] MEDS: SLF 3 ML SYR IV ×3 (06:00→21:02)
[2018-04-11] MEDS: IPRATROPIUM 0.5MG/ALBUTEROL 2.5MG INH SOL UD 3ML (DUONEB)(J7620) NEB ×2 (07:11→11:11)
[2018-04-11] MEDS: diphenhydrAMINE 12.5MG/5ML ELIXIR UDC PO (08:00)
[2018-04-11] MEDS: NEUTRA-PHOS 1.25 GM PACKET PO (09:00)
[2018-04-11] MEDS: MULTIVITAMIN/MINERALS LIQUID 15ML ORAL SYRINGE PO (09:00)
[2018-04-11] MEDS: FUROSEMIDE 40 MG/4 ML VIAL (J1940) IV (09:00)
[2018-04-11] MEDS: DOCUSATE SOD LIQ 100MG/10ML UDC PO (09:00)
[2018-04-11] MEDS: PANTOPRAZOLE 40MG INJ (PROTONIX) (C9113) IV (10:09)
[2018-04-11] MEDS: NYSTATIN 100,000 UNITS/GM TOPICAL PWD 15 GM TOP ×2 (10:10→21:01)
[2018-04-11 10:29] LABS: INR 1.88; PROTHROMBIN TIME 21.9 SECONDS (12.1-14.4)
[2018-04-11 10:37] LABS: VANCOMYCIN LEVEL TROUGH 14.4 UG/ML (10.0-20.0)
[2018-04-11 12:48] LABS: BEDSIDE GLUCOSE 266 MG/DL (83-110)
[2018-04-11 14:14] LABS: LEGIONELLA ANTIGEN URINE Negative (Negative)
[2018-04-11 14:14] LABS: BODY FLUID CULTURE Not Indicated (.); LEGIONELLA ANTIGEN URINE Negative (Negative); ORGANISM ID Not indicated. (.); SPECIMEN SOURCE Urine (.); URINE STREP PNEUMONIAE ANTIGEN Negative (Negative)
[2018-04-11 14:14] LABS: ANTI-HISTONE ANTIBODIES 1.4 Units (0.0-0.9)
[2018-04-11] MEDS ORDERED: SODIUM CHLORIDE 0.9% INJ 10 ML SYR IV (15:45)
[2018-04-11 18:11] LABS: BEDSIDE GLUCOSE 206 MG/DL (83-110)
[2018-04-11] MEDS: SODIUM CHLORIDE 0.9% INJ 10 ML SYR IV (21:01)
[2018-04-11 23:38] LABS: BEDSIDE GLUCOSE 184 MG/DL (83-110)
[2018-04-12] MEDS: HumaLOG INSULIN (NovoLOG) PER UNIT SC ×5 (00:04→23:37)
[2018-04-12 00:42] LABS: MYCOPLASMA PNEUMONIAE IgG 406 U/mL (0-99); MYCOPLASMA PNEUMONIAE IgM <770 U/mL (0-769)
[2018-04-12 00:42] LABS: MYCOPLASMA PNEUMONIAE IgM <770 U/mL (0-769)
[2018-04-12] MEDS: AZTREONAM 1 GM in D5W MINI-BAG PLUS 50 ML IV (01:03)
[2018-04-12 05:41] LABS: BASO % 0.1 % (0.0-1.0); EOS # 0.2 10^3/uL (0.0-0.50); EOS % 1.3 % (0.0-3.0); HEMATOCRIT 29.4 % (36.0-47.0); HEMOGLOBIN 8.7 g/dl (12.0-15.5); LYMPH # 0.3 10^3/uL (1.5-4.5); MEAN CORPUSCULAR HEMOGLOBIN 27.1 pg (27.0-33.0); MEAN CORPUSCULAR HGB CONC 29.6 g/dl (32.0-36.5); MEAN CORPUSCULAR VOLUME 91.6 fl (80.0-96.0); MONO # 0.3 10^3/uL (0.0-0.8); MONO % 2.2 % (0.0-5.0); NEUTROPHILS # 12.8 10^3/uL (1.8-7.7); NEUTROPHILS % 92.4 % (36.0-66.0); PLATELET COUNT, AUTOMATED 121 10^3/uL (150-450); RED BLOOD COUNT 3.21 10^6/uL (4.00-5.40); RED CELL DISTRIBUTION WIDTH 17.8 % (11.5-14.5); WHITE BLOOD COUNT 13.9 10^3/uL (4.0-10.0)
[2018-04-12 06:02] LABS: POSITIVE DIFF POS FLAG
[2018-04-12 06:16] LABS: ALBUMIN 2.2 GM/DL (3.2-5.2); ALBUMIN/GLOBULIN RATIO 0.61 (1.00-1.93); ALKALINE PHOSPHATASE 126 U/L (45-117); ALT/SGPT 261 U/L (12-78); ANION GAP 10 MEQ/L (8-16); AST/SGOT 38 U/L (7-37); BLOOD UREA NITROGEN 45 MG/DL (7-18); CALCIUM LEVEL 8.2 MG/DL (8.8-10.2); CARBON DIOXIDE LEVEL 26 MEQ/L (21-32); CHLORIDE LEVEL 103 MEQ/L (98-107); CREATININE FOR GFR 1.24 MG/DL (0.55-1.30); GLOMERULAR FILTRATION RATE 45.3 (>39); GLUCOSE, FASTING 191 MG/DL (70-100); INR 1.73; MAGNESIUM LEVEL 2.2 MG/DL (1.8-2.4); PHOSPHORUS LEVEL 2.6 MG/DL (2.5-4.9); POTASSIUM SERUM 4.2 MEQ/L (3.5-5.1); PROTHROMBIN TIME 20.6 SECONDS (12.1-14.4); SODIUM LEVEL 139 MEQ/L (136-145); TOTAL PROTEIN 5.8 GM/DL (6.4-8.2)
[2018-04-12] MEDS: SLF 3 ML SYR IV ×3 (06:18→22:00)
[2018-04-12] MEDS: SODIUM CHLORIDE 0.9% INJ 10 ML SYR IV ×3 (06:18→22:00)
[2018-04-12 08:26] LABS: BEDSIDE GLUCOSE 194 MG/DL (83-110)
[2018-04-12] MEDS: PANTOPRAZOLE 40MG INJ (PROTONIX) (C9113) IV (09:26)
[2018-04-12] MEDS: NYSTATIN 100,000 UNITS/GM TOPICAL PWD 15 GM TOP ×2 (09:27→20:29)
[2018-04-12] MEDS: FUROSEMIDE 20 MG/2 ML VIAL (J1940) IV (10:00)
[2018-04-12 12:08] LABS: BEDSIDE GLUCOSE 184 MG/DL (83-110)
[2018-04-12] MEDS: ENOXAPARIN 30 MG/0.3 ML SYR (J1650) SC (14:55)
[2018-04-12] MEDS: ALBUTEROL SULFATE 2.5 MG/0.5 ML INH NEB SOLN NEB (15:27)
[2018-04-12 17:49] LABS: BEDSIDE GLUCOSE 170 MG/DL (83-110)
[2018-04-12 23:35] LABS: BEDSIDE GLUCOSE 143 MG/DL (83-110)
[2018-04-13 05:33] LABS: BASO % 0.1 % (0.0-1.0); EOS # 0.1 10^3/uL (0.0-0.50); EOS % 1.1 % (0.0-3.0); HEMATOCRIT 28.4 % (36.0-47.0); HEMOGLOBIN 8.4 g/dl (12.0-15.5); IMMATURE GRANULOCYTE % 1.3 % (0-3.0); LYMPH # 0.4 10^3/uL (1.5-4.5); LYMPH % 3.3 % (24.0-44.0); MEAN CORPUSCULAR HGB CONC 29.6 g/dl (32.0-36.5); MEAN CORPUSCULAR VOLUME 91.3 fl (80.0-96.0); MONO # 0.6 10^3/uL (0.0-0.8); MONO % 4.2 % (0.0-5.0); NEUTROPHILS # 11.8 10^3/uL (1.8-7.7); PLATELET COUNT, AUTOMATED 126 10^3/uL (150-450); RED BLOOD COUNT 3.11 10^6/uL (4.00-5.40); RED CELL DISTRIBUTION WIDTH 17.7 % (11.5-14.5); WHITE BLOOD COUNT 13.1 10^3/uL (4.0-10.0)
[2018-04-13 05:44] LABS: INR 1.71; PROTHROMBIN TIME 20.4 SECONDS (12.1-14.4)
[2018-04-13 06:16] LABS: ALBUMIN 2.1 GM/DL (3.2-5.2); ALBUMIN/GLOBULIN RATIO 0.58 (1.00-1.93); ALKALINE PHOSPHATASE 112 U/L (45-117); ALT/SGPT 185 U/L (12-78); ANION GAP 9 MEQ/L (8-16); AST/SGOT 34 U/L (7-37); BILIRUBIN,TOTAL 1.8 MG/DL (0.2-1.0); BLOOD UREA NITROGEN 38 MG/DL (7-18); CALCIUM LEVEL 7.8 MG/DL (8.8-10.2); CARBON DIOXIDE LEVEL 27 MEQ/L (21-32); CHLORIDE LEVEL 106 MEQ/L (98-107); CREATININE FOR GFR 0.98 MG/DL (0.55-1.30); GLOMERULAR FILTRATION RATE 59.4 (>39); GLUCOSE, FASTING 148 MG/DL (70-100); MAGNESIUM LEVEL 2.1 MG/DL (1.8-2.4); PHOSPHORUS LEVEL 2.7 MG/DL (2.5-4.9); POTASSIUM SERUM 4.2 MEQ/L (3.5-5.1); SODIUM LEVEL 142 MEQ/L (136-145); TOTAL PROTEIN 5.7 GM/DL (6.4-8.2)
[2018-04-13] MEDS: SLF 3 ML SYR IV ×3 (06:28→22:00)
[2018-04-13] MEDS: HumaLOG INSULIN (NovoLOG) PER UNIT SC ×3 (06:28→17:56)
[2018-04-13] MEDS: SODIUM CHLORIDE 0.9% INJ 10 ML SYR IV ×3 (06:28→22:00)
[2018-04-13] MEDS: PANTOPRAZOLE 40MG INJ (PROTONIX) (C9113) IV (08:28)
[2018-04-13] MEDS: ENOXAPARIN 30 MG/0.3 ML SYR (J1650) SC (08:28)
[2018-04-13] MEDS: FUROSEMIDE 20 MG/2 ML VIAL (J1940) IV (08:29)
[2018-04-13] MEDS: NYSTATIN 100,000 UNITS/GM TOPICAL PWD 15 GM TOP ×2 (08:29→21:10)
[2018-04-13 11:46] LABS: BEDSIDE GLUCOSE 199 MG/DL (83-110)
[2018-04-13] MEDS: KETOROLAC 30 MG/ML VIAL (J1885) IV (12:48)
[2018-04-13 17:37] LABS: BEDSIDE GLUCOSE 160 MG/DL (83-110)
[2018-04-13 23:54] LABS: BEDSIDE GLUCOSE 146 MG/DL (83-110)
[2018-04-14] MEDS: KETOROLAC 30 MG/ML VIAL (J1885) IV (03:28)
[2018-04-14 05:31] LABS: BASO % 0.2 % (0.0-1.0); EOS # 0.1 10^3/uL (0.0-0.50); EOS % 0.7 % (0.0-3.0); HEMATOCRIT 31.6 % (36.0-47.0); IMMATURE GRANULOCYTE % 1.3 % (0-3.0); LYMPH # 0.4 10^3/uL (1.5-4.5); LYMPH % 3.2 % (24.0-44.0); MEAN CORPUSCULAR HEMOGLOBIN 27.1 pg (27.0-33.0); MEAN CORPUSCULAR HGB CONC 28.5 g/dl (32.0-36.5); MEAN CORPUSCULAR VOLUME 95.2 fl (80.0-96.0); MONO # 0.5 10^3/uL (0.0-0.8); MONO % 3.9 % (0.0-5.0); NEUTROPHILS % 90.7 % (36.0-66.0); PLATELET COUNT, AUTOMATED 176 10^3/uL (150-450); RED BLOOD COUNT 3.32 10^6/uL (4.00-5.40); RED CELL DISTRIBUTION WIDTH 17.3 % (11.5-14.5); WHITE BLOOD COUNT 13.2 10^3/uL (4.0-10.0)
[2018-04-14 05:42] LABS: ALBUMIN 2.4 GM/DL (3.2-5.2); ALBUMIN/GLOBULIN RATIO 0.59 (1.00-1.93); ALKALINE PHOSPHATASE 113 U/L (45-117); ALT/SGPT 154 U/L (12-78); ANION GAP 13 MEQ/L (8-16); AST/SGOT 31 U/L (7-37); BILIRUBIN,TOTAL 1.8 MG/DL (0.2-1.0); BLOOD UREA NITROGEN 47 MG/DL (7-18); CALCIUM LEVEL 8.5 MG/DL (8.8-10.2); CARBON DIOXIDE LEVEL 26 MEQ/L (21-32); CHLORIDE LEVEL 106 MEQ/L (98-107); CREATININE FOR GFR 1.07 MG/DL (0.55-1.30); GLOMERULAR FILTRATION RATE 53.7 (>39); GLUCOSE, FASTING 202 MG/DL (70-100); MAGNESIUM LEVEL 2.3 MG/DL (1.8-2.4); PHOSPHORUS LEVEL 3.5 MG/DL (2.5-4.9); POTASSIUM SERUM 4.3 MEQ/L (3.5-5.1); SODIUM LEVEL 145 MEQ/L (136-145); TOTAL PROTEIN 6.5 GM/DL (6.4-8.2)
[2018-04-14] MEDS: HumaLOG INSULIN (NovoLOG) PER UNIT SC ×4 (05:47→17:58)
[2018-04-14] MEDS: SODIUM CHLORIDE 0.9% INJ 10 ML SYR IV ×3 (05:48→21:28)
[2018-04-14] MEDS: SLF 3 ML SYR IV ×3 (05:48→21:28)
[2018-04-14 05:51] LABS: INR 1.56; PROTHROMBIN TIME 18.9 SECONDS (12.1-14.4)
[2018-04-14] MEDS: hydrALAZINE INJ 20 MG/ML VIAL IV ×3 (07:38→20:43)
[2018-04-14] MEDS: PANTOPRAZOLE 40MG INJ (PROTONIX) (C9113) IV (09:07)
[2018-04-14] MEDS: ENOXAPARIN 30 MG/0.3 ML SYR (J1650) SC (09:08)
[2018-04-14] MEDS: NYSTATIN 100,000 UNITS/GM TOPICAL PWD 15 GM TOP ×2 (09:08→21:00)
[2018-04-14] MEDS: FUROSEMIDE 20 MG/2 ML VIAL (J1940) IV ×3 (09:08→17:45)
[2018-04-14 13:09] LABS: BEDSIDE GLUCOSE 198 MG/DL (83-110)
[2018-04-14] MEDS: ENALAPRILAT INJ 2.5MG/2ML VIAL IV ×2 (14:04→17:40)
[2018-04-14] MEDS: OXYMETAZOLINE NASAL SPRAY (AFRIN) (15:19)
[2018-04-14] MEDS: SILVER NITRATE APPLICATOR TOP (15:30)
[2018-04-14] MEDS: AMINO AC/ELECTROLYTE/DEX/CALC 2,000 ML IV (17:38)
[2018-04-14] MEDS: FAT EMULSION IV 20% 500 ML IV (17:39)
[2018-04-14 17:56] LABS: BEDSIDE GLUCOSE 227 MG/DL (83-110)
[2018-04-15 00:04] LABS: BEDSIDE GLUCOSE 416 MG/DL (83-110)
[2018-04-15 00:31] LABS: HEMATOCRIT 29.6 % (36.0-47.0); HEMOGLOBIN 8.7 g/dl (12.0-15.5)
[2018-04-15] MEDS: HumaLOG INSULIN (NovoLOG) PER UNIT SC ×5 (00:34→18:20)
[2018-04-15] MEDS: ENALAPRILAT INJ 2.5MG/2ML VIAL IV ×4 (00:35→18:21)
[2018-04-15] MEDS: FUROSEMIDE 20 MG/2 ML VIAL (J1940) IV ×3 (00:35→12:58)
[2018-04-15] MEDS: hydrALAZINE INJ 20 MG/ML VIAL IV ×6 (00:36→19:55)
[2018-04-15 05:01] LABS: ANION GAP 8 MEQ/L (8-16); BLOOD UREA NITROGEN 58 MG/DL (7-18); CALCIUM LEVEL 8.5 MG/DL (8.8-10.2); CARBON DIOXIDE LEVEL 32 MEQ/L (21-32); CHLORIDE LEVEL 105 MEQ/L (98-107); CREATININE FOR GFR 1.31 MG/DL (0.55-1.30); GLOMERULAR FILTRATION RATE 42.5 (>39); GLUCOSE, FASTING 467 MG/DL (70-100); HEMATOCRIT 31.1 % (36.0-47.0); HEMOGLOBIN 8.8 g/dl (12.0-15.5); MEAN CORPUSCULAR HEMOGLOBIN 26.4 pg (27.0-33.0); MEAN CORPUSCULAR HGB CONC 28.3 g/dl (32.0-36.5); MEAN CORPUSCULAR VOLUME 93.4 fl (80.0-96.0); PLATELET COUNT, AUTOMATED 215 10^3/uL (150-450); POTASSIUM SERUM 3.4 MEQ/L (3.5-5.1); RED BLOOD COUNT 3.33 10^6/uL (4.00-5.40); RED CELL DISTRIBUTION WIDTH 17.5 % (11.5-14.5); SODIUM LEVEL 145 MEQ/L (136-145); WHITE BLOOD COUNT 13.4 10^3/uL (4.0-10.0)
[2018-04-15] MEDS: SODIUM CHLORIDE 0.9% INJ 10 ML SYR IV ×3 (05:16→20:01)
[2018-04-15] MEDS: SLF 3 ML SYR IV ×3 (05:16→20:01)
[2018-04-15] MEDS ORDERED: SILVER NITRATE APPLICATOR TOP ×2 (05:45→06:15)
[2018-04-15 06:13] LABS: BEDSIDE GLUCOSE 474 MG/DL (83-110)
[2018-04-15 08:44] LABS: BEDSIDE GLUCOSE 394 MG/DL (83-110)
[2018-04-15] MEDS: PANTOPRAZOLE 40MG INJ (PROTONIX) (C9113) IV (09:44)
[2018-04-15] MEDS: NYSTATIN 100,000 UNITS/GM TOPICAL PWD 15 GM TOP ×2 (09:44→20:02)
[2018-04-15 12:15] LABS: BEDSIDE GLUCOSE 550 MG/DL (83-110)
[2018-04-15 15:33] LABS: ABG BASE EXCESS 4.2 (-2.0-2.0); ABG HCO3 27.6 MEQ/L (22.0-26.0); ABG O2 SATURATION 92.4 % (95.0-99.0); ABG PARTIAL PRESSURE CO2 37.1 mmHg (35.0-45.0); ABG PARTIAL PRESSURE O2 65.7 mmHg (75.0-100.0); ABG STANDARD HCO3 28.1 MEQ/L (22.0-26.0); ABG TOTAL CO2 28.8 MEQ/L (23.0-31.0)
[2018-04-15 15:34] LABS: ABG SITE LT RADIAL
[2018-04-15] MEDS: FUROSEMIDE 100 MG/10 ML VIAL (J1940) IV (16:49)
[2018-04-15 17:47] LABS: BEDSIDE GLUCOSE 563 MG/DL (83-110)
[2018-04-15] MEDS: ELECTROLYTE IV (18:22)
[2018-04-15] MEDS: AMINO AC IV (18:22)
[2018-04-15] MEDS: CALC IV (18:22)
[2018-04-15] MEDS: INSULIN HUMAN REGULAR IV (18:22)
[2018-04-15] MEDS: FAT EMULSION IV 20% 500 ML IV (18:22)
[2018-04-15] MEDS: DEX IV (18:22)
[2018-04-15] MEDS: NITROGLYCERIN/D5W 100MCG/ML 25 MG in APPROPRIATE DILUENT 1 EA IV (19:55)
[2018-04-16] MEDS: FUROSEMIDE 100 MG/10 ML VIAL (J1940) IV ×3 (00:03→12:07)
[2018-04-16] MEDS: hydrALAZINE INJ 20 MG/ML VIAL IV ×4 (00:03→12:13)
[2018-04-16] MEDS: ENALAPRILAT INJ 2.5MG/2ML VIAL IV ×2 (00:04→06:07)
[2018-04-16 00:18] LABS: BEDSIDE GLUCOSE 526 MG/DL (83-110)
[2018-04-16] MEDS: HumaLOG INSULIN (NovoLOG) PER UNIT SC ×3 (00:21→12:08)
[2018-04-16] MEDS: LEVEMIR (INSULIN DETEMIR) 1 UNITS/0.01ML SC (00:21)
[2018-04-16 01:31] LABS: BEDSIDE GLUCOSE 535 MG/DL (83-110)
[2018-04-16 04:56] LABS: HEMATOCRIT 29.5 % (36.0-47.0); HEMOGLOBIN 8.7 g/dl (12.0-15.5); MEAN CORPUSCULAR HEMOGLOBIN 27.2 pg (27.0-33.0); MEAN CORPUSCULAR HGB CONC 29.5 g/dl (32.0-36.5); MEAN CORPUSCULAR VOLUME 92.2 fl (80.0-96.0); PLATELET COUNT, AUTOMATED 244 10^3/uL (150-450); RED CELL DISTRIBUTION WIDTH 17.6 % (11.5-14.5); WHITE BLOOD COUNT 16.6 10^3/uL (4.0-10.0)
[2018-04-16 05:26] LABS: ANION GAP 7 MEQ/L (8-16); BLOOD UREA NITROGEN 72 MG/DL (7-18); CALCIUM LEVEL 8.3 MG/DL (8.8-10.2); CARBON DIOXIDE LEVEL 34 MEQ/L (21-32); CHLORIDE LEVEL 107 MEQ/L (98-107); CREATININE FOR GFR 1.59 MG/DL (0.55-1.30); GLUCOSE, FASTING 554 MG/DL (70-100); SODIUM LEVEL 148 MEQ/L (136-145)
[2018-04-16] MEDS: SODIUM CHLORIDE 0.9% INJ 10 ML SYR IV (06:04)
[2018-04-16] MEDS: SLF 3 ML SYR IV (06:04)
[2018-04-16] MEDS: NITROGLYCERIN/D5W 100MCG/ML 25 MG in APPROPRIATE DILUENT 1 EA IV ×2 (07:09→11:35)
[2018-04-16] MEDS: KETOROLAC 30 MG/ML VIAL (J1885) IV (08:02)
[2018-04-16] MEDS: PANTOPRAZOLE 40MG INJ (PROTONIX) (C9113) IV (08:02)
[2018-04-16] MEDS: NYSTATIN 100,000 UNITS/GM TOPICAL PWD 15 GM TOP (08:02)
[2018-04-16] MEDS ORDERED: FLEET ENEMA PR (09:00)
[2018-04-16] MEDS: ENOXAPARIN 30 MG/0.3 ML SYR (J1650) SC (10:19)
[2018-04-16] MEDS: NS 0.45% 1,000 ML IV (10:19)
[2018-04-16] MEDS: MORPHINE 4 MG/ML 1ML VIAL/SYRINGE (J2270) IV (10:47)
[2018-04-16 11:42] LABS: BEDSIDE GLUCOSE 472 MG/DL (83-110)
[2018-04-16] MEDS: BISACODYL 10 MG SUPP PR (12:19)
== END 2018-04-16 17:33 | disposition expired | DRG 207 ==
LOC: M ICU 04-08 10:55 → M PCU 18:23
PROC: 30233K1 Transfusion of Nonautologous Frozen Plasma into Peripheral Vein, Percutaneous Approach (ICD-10-PCS; 2018-04-07)
PROC: 5A1955Z Respiratory Ventilation, Greater than 96 Consecutive Hours (ICD-10-PCS; principal; 2018-04-08)
PROC: 02HV33Z Insertion of Infusion Device into Superior Vena Cava, Percutaneous Approach (ICD-10-PCS; 2018-04-08)
PROC: 30233N1 Transfusion of Nonautologous Red Blood Cells into Peripheral Vein, Percutaneous Approach (ICD-10-PCS; 2018-04-09)
DX: J96.01 Acute respiratory failure with hypoxia (principal); J18.9 Pneumonia, unspecified organism; G93.41 Metabolic encephalopathy; K72.00 Acute and subacute hepatic failure without coma; N17.9 Acute kidney failure, unspecified; I50.42 Chronic combined systolic (congestive) and diastolic (congestive) heart failure; E87.2 Acidosis; I13.0 Hypertensive heart and chronic kidney disease with heart failure and stage 1 through stage 4 chronic kidney disease, or unspecified chronic kidney disease; I25.10 Atherosclerotic heart disease of native coronary artery without angina pectoris; I25.2 Old myocardial infarction; I48.2 Chronic atrial fibrillation; Z79.01 Long term (current) use of anticoagulants; E11.649 Type 2 diabetes mellitus with hypoglycemia without coma; E78.5 Hyperlipidemia, unspecified; K21.9 Gastro-esophageal reflux disease without esophagitis; G47.33 Obstructive sleep apnea (adult) (pediatric); M79.7 Fibromyalgia; G25.81 Restless legs syndrome; D46.9 Myelodysplastic syndrome, unspecified; Z95.0 Presence of cardiac pacemaker; Z95.1 Presence of aortocoronary bypass graft; Z95.2 Presence of prosthetic heart valve; Z87.891 Personal history of nicotine dependence; Z88.5 Allergy status to narcotic agent; Z88.0 Allergy status to penicillin; Z91.040 Latex allergy status; I34.0 Nonrheumatic mitral (valve) insufficiency; I27.20 Pulmonary hypertension, unspecified; Z66 Do not resuscitate; E87.6 Hypokalemia; E83.42 Hypomagnesemia; E83.39 Other disorders of phosphorus metabolism